=== PATIENT | male | born 1950 | race Hispanic/Latino ===

== ENCOUNTER 2019-07-30 11:14 | Inpatient (IN) | payer MEDICARE ==
--- NOTE | 2019-07-30 11:30 | Event Note ---
ED Screening Note ED Screening Note: Mr. Grover feels "full of fluid." Hx of ID COPD and lymphedema. +body aches. Global swelling. This initial assessment/diagnostic orders/clinical plan/treatment(s) is/are subject to change based on patients health status, clinical progression and re- assessment by fellow clinical providers in the ED. Further treatment and workup at subsequent clinical providers discretion. Patient/guardian urged not to elope from the ED as their condition may be serious if not clinically assessed and managed. Initial orders include: labs, xr
[2019-07-30 12:47] LABS: Basophils # (Auto) 0.1 K/mm3 (0.0-0.1); Basophils % (Auto) 1.3 % (0.0-1.8); Eosinophils # (Auto) 0.5 K/mm3 (0.0-0.4); Eosinophils % (Auto) 6.6 % (0.0-4.3); Lymphocytes % (Auto) 13.9 % (13.4-35.0); Mean Corpuscular HGB Conc 30 % (32-34); Mean Corpuscular Volume 79 fl (84-94); Monocytes # (Auto) 0.7 K/mm3 (0.0-0.8); Monocytes % (Auto) 9.8 % (0.0-7.3); Platelet Count 273 K/mm3 (140-440); Red Blood Count 5.22 M/mm3 (3.65-5.03); Red Cell Distribution Width 18.8 % (13.2-15.2)
--- NOTE | 2019-07-30 12:47 | XRay Report ---
CHEST 2 VIEWS INDICATION / CLINICAL INFORMATION: Dyspnea. COMPARISON: None available. FINDINGS: SUPPORT DEVICES: None. HEART / MEDIASTINUM: Cardiac silhouette is enlarged. LUNGS / PLEURA: Hazy interstitial opacities are present bilaterally. The appearance may reflect early pulmonary vascular congestion. No overt edema. No focal pulmonary consolidation. No pneumothorax. ADDITIONAL FINDINGS: Mild dextroconvex curvature of the lower thoracic spine. IMPRESSION: Findings suggestive of pulmonary vascular congestion without overt edema. Enlarged cardiac silhouette. Signer Name: Viktor Gonsalez MD Signed: 07/30/2019 12:43 PM Workstation Name: [id number]
[2019-07-30 12:48] LABS: Hematocrit 41.4 % (35.5-45.6); Hemoglobin 12.2 gm/dl (11.8-15.2)
[2019-07-30 14:14] LABS: Alanine Aminotransferase 17 units/L (7-56); Albumin 3.8 g/dL (3.9-5); BUN/Creatinine Ratio 9; Blood Urea Nitrogen 8 mg/dL (9-20); Calcium 8.8 mg/dL (8.4-10.2); Hemolysis Index 2
[2019-07-30] MEDS ORDERED: FUROSEMIDE 40 MG/4 ML INJ IV ONE (14:53)
--- NOTE | 2019-07-30 14:56 | Emergency Department Report ---
ED General Adult HPI - General Chief complaint: Dyspnea/Respdistress Stated complaint: FLUID Time Seen by Provider: 07/30/19 14:20 Source: patient Mode of arrival: Wheelchair Limitations: Physical Limitation - History of Present Illness Initial comments: Patient presents to the emergency department with a chief complaint of shortness of breath that is worse when laying flat for the last couple of days. The patient states that he wears oxygen at home this taken his Lasix but has not working. Patient also states that his legs and arms are swollen. She complains of chest tightness but denies kathleen chest pain. -: Gradual Severity scale (0 -10): 1 Quality: other (tightness) Consistency: constant Improves with: rest Worsens with: movement Associated Symptoms: denies other symptoms Treatments Prior to Arrival: none - Related Data Allergies Allergy/AdvReac Type Severity Reaction Status Date / Time Penicillins Allergy Unknown Verified 07/30/19 11:33 ED Review of Systems ROS: Stated complaint: FLUID Other details as noted in HPI Comment: All other systems reviewed and negative Constitutional: denies: chills, fever Eyes: denies: eye pain, eye discharge, vision change ENT: denies: ear pain, throat pain Respiratory: shortness of breath. denies: cough, wheezing Cardiovascular: denies: chest pain, palpitations Endocrine: no symptoms reported Gastrointestinal: denies: abdominal pain, nausea, diarrhea Genitourinary: denies: urgency, dysuria Musculoskeletal: denies: back pain, joint swelling, arthralgia Skin: denies: rash, lesions Neurological: denies: headache, weakness, paresthesias Psychiatric: denies: anxiety, depression Hematological/Lymphatic: denies: easy bleeding, easy bruising ED Past Medical Hx - Past Medical History Hx Hypertension: Yes Hx COPD: Yes (HOME O2) Additional medical history: ELEVATED CHOLESTEROL - Surgical History Past Surgical History?: No - Social History Smoking Status: Former Smoker Substance Use Type: None ED Physical Exam - General Limitations: Physical Limitation General appearance: alert, in no apparent distress - Head Head exam: Present: atraumatic, normocephalic - Eye Eye exam: Present: normal appearance - ENT ENT exam: Present: mucous membranes moist - Neck Neck exam: Present: normal inspection - Respiratory Respiratory exam: Present: rales. Absent: respiratory distress - Cardiovascular Cardiovascular Exam: Present: regular rate, normal rhythm. Absent: systolic murmur, diastolic murmur, rubs, gallop - GI/Abdominal GI/Abdominal exam: Present: soft, distended (abdomen is distended but soft and there is some pitting edema), normal bowel sounds. Absent: tenderness - Rectal Rectal exam: Present: deferred - Extremities Exam Extremities exam: Present: other (bilateral pitting edema) - Back Exam Back exam: Present: normal inspection - Neurological Exam Neurological exam: Present: alert, oriented X3 - Psychiatric Psychiatric exam: Present: normal affect, normal mood - Skin Skin exam: Present: warm, dry, intact, normal color. Absent: rash ED Course Vital Signs 07/30/19 07/30/19 07/30/19 11:29 14:09 14:30 Temperature 97.8 F Pulse Rate 86 78 Respiratory 18 17 Rate Blood Pressure 150/86 146/92 O2 Sat by Pulse 79 L 65 L 98 Oximetry 07/30/19 15:30 Temperature Pulse Rate Respiratory Rate Blood Pressure 123/43 O2 Sat by Pulse 98 Oximetry ED Medical Decision Making - Lab Data Result diagrams: 07/30/19 12:30 07/30/19 12:30 Lab Results 07/30/19 07/30/19 07/30/19 Range/Units 12:30 12:30 12:30 WBC 7.4 (4.5-11.0) K/mm3 RBC 5.22 H (3.65-5.03) M/mm3 Hgb 12.2 (11.8-15.2) gm/dl Hct 41.4 (35.5-45.6) % MCV 79 L (84-94) fl MCH 23 L (28-32) pg MCHC 30 L (32-34) % RDW 18.8 H (13.2-15.2) % Plt Count 273 (140-440) K/mm3 Lymph % (Auto) 13.9 (13.4-35.0) % Nye % (Auto) 9.8 H (0.0-7.3) % Eos % (Auto) 6.6 H (0.0-4.3) % Baso % (Auto) 1.3 (0.0-1.8) % Lymph # 1.0 L (1.2-5.4) K/mm3 Nye # 0.7 (0.0-0.8) K/mm3 Eos # 0.5 H (0.0-0.4) K/mm3 Baso # 0.1 (0.0-0.1) K/mm3 Seg Neutrophils % 68.4 (40.0-70.0) % Seg Neutrophils # 5.0 (1.8-7.7) K/mm3 Sodium 144 (137-145) mmol/L Potassium 4.1 (3.6-5.0) mmol/L Chloride 99.6 (98-107) mmol/L Carbon Dioxide 31 H (22-30) mmol/L Anion Gap 18 mmol/L BUN 8 L (9-20) mg/dL Creatinine 0.9 (0.8-1.5) mg/dL Estimated GFR > 60 ml/min BUN/Creatinine Ratio 9 % Glucose 99 (75-100) mg/dL Calcium 8.8 (8.4-10.2) mg/dL Total Bilirubin 0.50 (0.1-1.2) mg/dL AST 27 (5-40) units/L ALT 17 (7-56) units/L Alkaline Phosphatase 94 (35-129) units/L Troponin T < 0.010 (0.00-0.029) ng/mL NT-Pro-B Natriuret Pep 4074 H (0-900) pg/mL Total Protein 7.2 (6.3-8.2) g/dL Albumin 3.8 L (3.9-5) g/dL Albumin/Globulin Ratio 1.1 % - Radiology Data Radiology results: report reviewed - Medical Decision Making The patient was given IV Lasix Patient will be admitted due to his initial onset having a O2 sat of 70% on O2 Patient also will be admitted due to the concerns of edema secondary to CHF Patient also complains of complete fatigue with exertion and due to his unstable state the patient requires admission for diuresis Critical Care Time: Yes Critical care time in (mins) excluding proc time.: 35 Critical care attestation.: If time is entered above; I have spent that time in minutes in the direct care of this critically ill patient, excluding procedure time. ED Disposition Clinical Impression: CHF exacerbation Disposition: OP ADMIT IP TO THIS HOSP Is pt being admited?: Yes Does the pt Need Aspirin: Yes Condition: Fair
[2019-07-30] MEDS ORDERED: ASPIRIN 81 MG TAB CHEW PO ONE (17:25)
[2019-07-30] MEDS ORDERED: ONDANSETRON 4 MG/2 ML INJ IV PRN (18:58)
[2019-07-30] MEDS ORDERED: METOCLOPRAMIDE 10 MG/2 ML INJ IV PRN (18:58)
[2019-07-30] MEDS ORDERED: HYDROmorphone 1 MG/1 ML INJ IV PRN (18:58)
[2019-07-30] MEDS ORDERED: ACETAMINOPHEN 325 MG TAB PO PRN (18:58)
--- NOTE | 2019-07-30 18:58 | History and Physical Report ---
History of Present Illness Date of examination: 07/30/19 Medications and Allergies Allergies Allergy/AdvReac Type Severity Reaction Status Date / Time Penicillins Allergy Unknown Verified 07/30/19 11:33 Exam - Constitutional Vitals: Temp Pulse Resp BP Pulse Ox 97.8 F 78 17 138/80 94 07/30/19 11:29 07/30/19 14:30 07/30/19 14:30 07/30/19 18:00 07/30/19 18:00 Results - Labs CBC & Chem 7: 07/30/19 12:30 07/30/19 12:30 Labs: Laboratory Last Values WBC 7.4 K/mm3 (4.5-11.0) 07/30/19 12:30 RBC 5.22 M/mm3 (3.65-5.03) H 07/30/19 12:30 Hgb 12.2 gm/dl (11.8-15.2) 07/30/19 12:30 Hct 41.4 % (35.5-45.6) 07/30/19 12:30 MCV 79 fl (84-94) L 07/30/19 12:30 MCH 23 pg (28-32) L 07/30/19 12:30 MCHC 30 % (32-34) L 07/30/19 12:30 RDW 18.8 % (13.2-15.2) H 07/30/19 12:30 Plt Count 273 K/mm3 (140-440) 07/30/19 12:30 Lymph % (Auto) 13.9 % (13.4-35.0) 07/30/19 12:30 [place] % (Auto) 9.8 % (0.0-7.3) H 07/30/19 12:30 Eos % (Auto) 6.6 % (0.0-4.3) H 07/30/19 12:30 Baso % (Auto) 1.3 % (0.0-1.8) 07/30/19 12:30 Lymph # 1.0 K/mm3 (1.2-5.4) L 07/30/19 12:30 [place] # 0.7 K/mm3 (0.0-0.8) 07/30/19 12:30 Eos # 0.5 K/mm3 (0.0-0.4) H 07/30/19 12:30 Baso # 0.1 K/mm3 (0.0-0.1) 07/30/19 12:30 Seg Neutrophils % 68.4 % (40.0-70.0) 07/30/19 12:30 Seg Neutrophils # 5.0 K/mm3 (1.8-7.7) 07/30/19 12:30 Sodium 144 mmol/L (137-145) 07/30/19 12:30 Potassium 4.1 mmol/L (3.6-5.0) 07/30/19 12:30 Chloride 99.6 mmol/L (98-107) 07/30/19 12:30 Carbon Dioxide 31 mmol/L (22-30) H 07/30/19 12:30 Anion Gap 18 mmol/L 07/30/19 12:30 BUN 8 mg/dL (9-20) L 07/30/19 12:30 Creatinine 0.9 mg/dL (0.8-1.5) 07/30/19 12:30 Estimated GFR > 60 ml/min 07/30/19 12:30 BUN/Creatinine Ratio 9 % 07/30/19 12:30 Glucose 99 mg/dL (75-100) 07/30/19 12:30 Calcium 8.8 mg/dL (8.4-10.2) 07/30/19 12:30 Total Bilirubin 0.50 mg/dL (0.1-1.2) 07/30/19 12:30 AST 27 units/L (5-40) 07/30/19 12:30 ALT 17 units/L (7-56) 07/30/19 12:30 Alkaline Phosphatase 94 units/L (35-129) 07/30/19 12:30 Troponin T < 0.010 ng/mL (0.00-0.029) 07/30/19 12:30 NT-Pro-B Natriuret Pep 4074 pg/mL (0-900) H 07/30/19 12:30 Total Protein 7.2 g/dL (6.3-8.2) 07/30/19 12:30 Albumin 3.8 g/dL (3.9-5) L 07/30/19 12:30 Albumin/Globulin Ratio 1.1 % 07/30/19 12:30
[2019-07-30] MEDS ORDERED: ASPIRIN 81 MG TAB CHEW ONE (20:06)
[2019-07-30] MEDS: oxyCODONE /ACETAMINOPHEN 5-325MG TAB PO PRN (21:25)
[2019-07-30] MEDS: FAMOTIDINE 20 MG TAB PO SCH (21:26)
[2019-07-31 05:29] LABS: Basophils # (Auto) 0.1 K/mm3 (0.0-0.1); Eosinophils # (Auto) 0.5 K/mm3 (0.0-0.4); Eosinophils % (Auto) 7.2 % (0.0-4.3); Lymphocytes # (Auto) 1.4 K/mm3 (1.2-5.4); Lymphocytes % (Auto) 20.2 % (13.4-35.0); Mean Corpuscular HGB Conc 29 % (32-34); Mean Corpuscular Volume 80 fl (84-94); Monocytes # (Auto) 0.8 K/mm3 (0.0-0.8); Platelet Count 294 K/mm3 (140-440); Red Blood Count 5.16 M/mm3 (3.65-5.03); Red Cell Distribution Width 18.8 % (13.2-15.2)
[2019-07-31 05:52] LABS: Hematocrit 41.5 % (35.5-45.6)
[2019-07-31 05:58] LABS: Alanine Aminotransferase 16 units/L (7-56); Albumin 3.8 g/dL (3.9-5); BUN/Creatinine Ratio 8; Blood Urea Nitrogen 9 mg/dL (9-20); Calcium 8.5 mg/dL (8.4-10.2); Hemolysis Index 1
--- NOTE | 2019-07-31 06:56 | Event Note ---
Date: 07/30/19 See H/p in reports CHF exacerbation
--- NOTE | 2019-07-31 08:12 | History and Physical Report ---
CHIEF COMPLAINT: Shortness of breath on minimal exertion and lying flat for the last 2 days. HISTORY OF PRESENT ILLNESS: A 68-year-old male comes in for increasing shortness of breath on minimal exertion, class 4 NYHA symptoms. on lying flat for the last couple of days. The patient with oxygen at home. The patient's swollen. Complains of chest tightness because of . PAST MEDICAL HISTORY: As mentioned, COPD, hypertension, hyperlipidemia. PAST SURGICAL HISTORY: None. SOCIAL HISTORY: Former smoker. FAMILY HISTORY: Hypertension. REVIEW OF SYSTEMS: Significant for severe shortness of breath on minimal exertion, orthopnea and bilateral leg swelling. Fluid nearly oozing out of the legs. Otherwise, review of systems negative. PHYSICAL EXAMINATION: GENERAL: Elderly male, cooperative during examination. VITAL SIGNS: Blood pressure is 126/73. Initial sats were 79% and 65. Temperature is 97.8, blood pressure is 150/86. HEENT: Unremarkable. Pupils equal and reactive. NECK: Supple, no lymphadenopathy, no thyromegaly. LUNGS: Scattered rales bilaterally. CARDIOVASCULAR: S1, S2 heard. No gallop, no murmur, no rub. Apical impulse in left fifth intercostal space and midclavicular line. ABDOMEN: Soft and benign. No hepatosplenomegaly. No guarding, no rigidity. Hernial orifices are normal. EXTREMITIES: 4+ pedal edema present. Both feet swollen with slight erythema. CENTRAL NERVOUS SYSTEM: Alert and oriented x 4, nonfocal exam. LABORATORY DATA: Initial oxygen saturations were 79 and 65. Labs are significant for normal H and H. MCV and MCH is slightly low. Electrolytes are normal. BNP is 4073. EKG shows sinus tachycardia. Chest x-ray shows pulmonary venous congestion and pulmonary vascular congestion. ASSESSMENT AND PLAN: 1. Acute respiratory failure. The patient has severe low oxygen saturations, improved with oxygenation and diuresis. The patient is on home oxygen. 2. Congestive heart failure exacerbation. The patient has severe pulmonary edema, on IV Lasix q. 12. Daily weights and daily intake and output. Severe pedal edema secondary to congestive heart failure and pulmonary hypertension extensive diuresis. Cardiology consult requested.ECHO ordered 3. Chronic obstructive pulmonary disease. DuoNeb as necessary. 4. Hypertension. Continue antihypertensives. 5. Deep venous thrombosis prophylaxis. Heparin 5000 q. 12. JOB# [id number] ABRIL/FLAKITA STOKES
[2019-07-31] MEDS: FAMOTIDINE 20 MG TAB PO SCH ×2 (12:55→21:34)
[2019-07-31] MEDS: oxyCODONE /ACETAMINOPHEN 5-325MG TAB PO PRN (12:56)
[2019-07-31 17:11] LABS: ABG Base Excess 9.3 mmol/L (-2.0-3.0); ABG HCO3 42.4 mmol/L (20.0-26.0); ABG Methemoglobin 0.7 % (0.0-1.5); ABG Oxygen Saturation 81.6 % (95.0-99.0); ABG PCO2 124.7 mm Hg; ABG PO2 55.1 mm Hg (80.0-90.0)
[2019-07-31 17:14] LABS: ABG PH 7.149 pH Units (7.350-7.450)
[2019-07-31] MEDS ORDERED: FUROSEMIDE 40 MG/4 ML INJ IV ONE (17:26)
--- NOTE | 2019-07-31 17:47 | Progress Note ---
Assessment and Plan Assessment and plan: Patient is a 68 yo hypertension, prior heavy smoker, dyslipidemia, OA walks with a cane and chronic hypoxic respiratory failure on 2 liters of home O2 due to COPD who presents to [facility] ED with SOB, leg edema. Pulse Ox documented in ED was 70%. 2 view CXR shows pulmonary vascular congestion without overt edema, enlarged cardiac silhouette. * TTE Conclusions: Global LVSF is at the lower limits of normal, estimated EF is 50-55%, trace MR, right heart chambers are both dilated, trace TR, study quality is technically difficult. Acute on chronic hypoxic respiratory failure due to p. edema: treat with iv lasix Acute onset of diastolic heart failure: treat with IV lasix, consult Cardiology Acute Respiratory Acidosis suspected: start bipap, move to IMCU, no beds in ICU per charge nurse Anasarca/ascites: treat with diurectics H/o COPD: treat with prn albuterol DVT ppx sq heparin move to IMCU start IV lasix, he was given a dose of IV lasix x 1 in ED but none was ordered for today. Patient has acutely decompensated after ECHO done today with hypoxia and confusion. Start bipap, give iv lasix, consult [employer], consult Cardiology CCT 3 minutes History Interval history: Patient was seen and examined. Follow-up on current diagnosis CHF, with sob on 5 liters O2. Imaging, nursing note, chart, labs and old chart reviewed. Discussed with patient. Gen: ill appearing obese bmi 37.4, WDWN, NAD, Awake, Alert, Orientated HEENT: NCAT, EOMI, PERRL, OP Clear Neck: supple, no adenopathy, no thyromegaly,+ JVD CVS/Heart: RRR, normal S1S2, pulses present bilaterally Chest/Lungs: bibasilar crackles Symmetrical chest expansion, good air entry bilaterally GI/Abdomen: soft, distensed, flank anasarca, /Bladder: no suprapubic tenderness, no CVA or paraspinal tenderness Extermity/Skin: 3+ble pitting edema, no obvious rash MSK: FROM x 4 Neuro: CN 2-12 grossly intact, no new focal deficits Psych: calm Hospitalist Physical - Constitutional Vitals: Temp Pulse Resp BP Pulse Ox 98.5 F 96 H 18 135/72 81 L 01/30/20 16:21 01/30/20 16:21 07/31/19 16:21 07/31/19 16:21 07/31/19 16:21 Results - Labs CBC & Chem 7: 07/31/19 04:37 07/31/19 04:37 Labs: Laboratory Last Values WBC 7.0 K/mm3 (4.5-11.0) 07/31/19 04:37 RBC 5.16 M/mm3 (3.65-5.03) H 07/31/19 04:37 Hgb 12.0 gm/dl (11.8-15.2) 07/31/19 04:37 Hct 41.5 % (35.5-45.6) 07/31/19 04:37 MCV 80 fl (84-94) L 07/31/19 04:37 MCH 23 pg (28-32) L 07/31/19 04:37 MCHC 29 % (32-34) L 07/31/19 04:37 RDW 18.8 % (13.2-15.2) H 07/31/19 04:37 Plt Count 294 K/mm3 (140-440) 07/31/19 04:37 Lymph % (Auto) 20.2 % (13.4-35.0) 07/31/19 04:37 Saunders % (Auto) 12.0 % (0.0-7.3) H 07/31/19 04:37 Eos % (Auto) 7.2 % (0.0-4.3) H 07/31/19 04:37 Baso % (Auto) 1.0 % (0.0-1.8) 07/31/19 04:37 Lymph # 1.4 K/mm3 (1.2-5.4) 07/31/19 04:37 Saunders # 0.8 K/mm3 (0.0-0.8) 07/31/19 04:37 Eos # 0.5 K/mm3 (0.0-0.4) H 07/31/19 04:37 Baso # 0.1 K/mm3 (0.0-0.1) 07/31/19 04:37 Seg Neutrophils % 59.6 % (40.0-70.0) 07/31/19 04:37 Seg Neutrophils # 4.2 K/mm3 (1.8-7.7) 07/31/19 04:37 ABG pH 7.149 pH Units (7.350-7.450) L* 07/31/19 16:50 ABG pCO2 124.7 mm Hg 07/31/19 16:50 ABG pO2 55.1 mm Hg (80.0-90.0) L 07/31/19 16:50 ABG HCO3 42.4 mmol/L (20.0-26.0) H 07/31/19 16:50 ABG O2 Saturation 81.6 % (95.0-99.0) L 07/31/19 16:50 ABG O2 Content 13.8 (0.0-44) 07/31/19 16:50 ABG Base Excess 9.3 mmol/L (-2.0-3.0) H 07/31/19 16:50 ABG Hemoglobin 12.3 gm/dl (14.0-18.0) L 07/31/19 16:50 ABG Carboxyhemoglobin 2.0 % (0.0-5.0) 07/31/19 16:50 ABG Methemoglobin 0.7 % (0.0-1.5) 07/31/19 16:50 Oxyhemoglobin 79.4 % (95.0-99.0) L 07/31/19 16:50 FiO2 30 % 07/31/19 16:50 Sodium 147 mmol/L (137-145) H 07/31/19 04:37 Potassium 4.9 mmol/L (3.6-5.0) 07/31/19 04:37 Chloride 101.8 mmol/L (98-107) 07/31/19 04:37 Carbon Dioxide 38 mmol/L (22-30) H D 07/31/19 04:37 Anion Gap 12 mmol/L 07/31/19 04:37 BUN 9 mg/dL (9-20) 07/31/19 04:37 Creatinine 1.1 mg/dL (0.8-1.5) 07/31/19 04:37 Estimated GFR > 60 ml/min 07/31/19 04:37 BUN/Creatinine Ratio 8 % 07/31/19 04:37 Glucose 98 mg/dL (75-100) 07/31/19 04:37 Hemoglobin A1c 7.2 % (4-6) H 07/30/19 19:13 Calcium 8.5 mg/dL (8.4-10.2) 07/31/19 04:37 Total Bilirubin 0.50 mg/dL (0.1-1.2) 07/31/19 04:37 AST 26 units/L (5-40) 07/31/19 04:37 ALT 16 units/L (7-56) 07/31/19 04:37 Alkaline Phosphatase 101 units/L (35-129) 07/31/19 04:37 Troponin T < 0.010 ng/mL (0.00-0.029) 07/30/19 12:30 NT-Pro-B Natriuret Pep 4074 pg/mL (0-900) H 07/30/19 12:30 Total Protein 7.0 g/dL (6.3-8.2) 07/31/19 04:37 Albumin 3.8 g/dL (3.9-5) L 07/31/19 04:37 Albumin/Globulin Ratio 1.2 % 07/31/19 04:37 Active Medications - Current Medications Current Medications: Generic Name Dose Route Start Last Admin Trade Name Freq PRN Reason Stop Dose Admin Acetaminophen 650 mg 07/30/19 18:58 Tylenol PO Q4H PRN Pain MILD(1-3)/Fever >100.5/WILLIS Famotidine 20 mg 07/30/19 22:00 07/31/19 12:55 Pepcid PO 20 mg BID SHANE Administration Furosemide 40 mg 07/31/19 18:00 Lasix IV 0600,1800 SHANE Hydromorphone HCl 1 mg 07/30/19 18:58 Dilaudid IV Q3H PRN Pain , Severe (7-10) Metoclopramide HCl 10 mg 07/30/19 18:58 Reglan IV Q6H PRN Nausea And Vomiting Ondansetron HCl 4 mg 07/30/19 18:58 Zofran IV Q8H PRN Nausea And Vomiting Oxycodone/Acetaminophen 1 tab 07/30/19 18:58 07/31/19 12:56 Percocet 5/325 PO 1 tab Q6H PRN Administration Pain, Moderate (4-6) Sodium Chloride 10 ml 07/30/19 22:00 07/31/19 12:56 Sodium Chloride Flush Syringe 10 Ml IV 10 ml BID SHANE Administration Sodium Chloride 10 ml 07/30/19 18:58 Sodium Chloride Flush Syringe 10 Ml IV PRN PRN LINE FLUSH
[2019-07-31] MEDS: FUROSEMIDE 40 MG/4 ML INJ IV SCH (18:50)
[2019-08-01 00:59] LABS: ABG Base Excess 13.4 mmol/L (-2.0-3.0); ABG HCO3 41.8 mmol/L (20.0-26.0); ABG Methemoglobin 0.5 % (0.0-1.5); ABG Oxygen Saturation 95.2 % (95.0-99.0); ABG PCO2 75.4 mm Hg; ABG PH 7.361 pH Units (7.350-7.450); ABG PO2 71.9 mm Hg (80.0-90.0)
[2019-08-01] MEDS: FUROSEMIDE 40 MG/4 ML INJ IV SCH ×2 (05:04→19:52)
--- NOTE | 2019-08-01 07:35 | Progress Note ---
Assessment and Plan Assessment and plan: Patient is a 68 yo man with a history of hypertension, prior tobacco dependency, dyslipidemia, OA with a cane and chronic hypoxic respiratory failure on 2 liters of home O2 due to COPD who presents to [facility] ED with SOB, leg edema. Pulse Ox documented in ED was 70%. His o2 was increased to 5 liters nasal canula. 2 view CXR shows pulmonary vascular congestion without overt edema, enlarged cardiac silhouette. The day after admission, patient acutely decompensated after ECHO done. I resumed IV lasix as he was given a dose of IV lasix x 1 in ED but none was ordered thereafter. ABGs done, 7.149/ 124.7/55.1/42.4; therefore, bipap started, more lasix ordered, Storeroom Supervisor and Cardiology consulted, moved to [facility] on 07/31/2019. Repeat ABGs on bipap 50% 7.361/75.4/71.9/41.8 * TTE Conclusions: Global LVSF is at the lower limits of normal, estimated EF is 50-55%, trace MR, right heart chambers are both dilated, trace TR, study quality is technically difficult. * 2 view CXR shows pulmonary vascular congestion without overt edema, enlarged cardiac silhouette. Acute on chronic hypoxic respiratory failure due to p. edema: treat with iv lasix Acute onset of diastolic heart failure: treat with IV lasix, consult Cardiology Acute Respiratory Acidosis suspected: start bipap, move to [facility], no beds in ICU per charge nurse Anasarca/ascites: treat with diurectics H/o COPD: treat with prn albuterol DVT ppx sq heparin full code CCT 31 minutes History Interval history: Patient was seen and examined. Follow-up on current diagnosis CHF with SOB. Imaging, nursing note, chart, labs and old chart reviewed. Discussed with patient. Hospitalist Physical - Physical exam Narrative exam: Gen: ill appearing obese bmi 37.4, WDWN, NAD, Awake, Alert, Orientated HEENT: NCAT, EOMI, PERRL, OP Clear Neck: supple, no adenopathy, no thyromegaly,+ JVD CVS/Heart: RRR, normal S1S2, pulses present bilaterally Chest/Lungs: bibasilar crackles Symmetrical chest expansion, good air entry bilaterally GI/Abdomen: soft, distensed, flank anasarca, /Bladder: no suprapubic tenderness, no CVA or paraspinal tenderness Extermity/Skin: 3+ble pitting edema, no obvious rash MSK: FROM x 4 Neuro: CN 2-12 grossly intact, no new focal deficits Psych: calm - Constitutional Vitals: Temp Pulse Resp BP Pulse Ox 98.7 F 89 14 135/76 94 08/01/19 04:00 08/01/19 05:01 08/01/19 05:01 08/01/19 05:01 08/01/19 05:01 Results - Labs CBC & Chem 7: 07/31/19 04:37 07/31/19 04:37 Labs: Laboratory Last Values WBC 7.0 K/mm3 (4.5-11.0) 07/31/19 04:37 RBC 5.16 M/mm3 (3.65-5.03) H 07/31/19 04:37 Hgb 12.0 gm/dl (11.8-15.2) 07/31/19 04:37 Hct 41.5 % (35.5-45.6) 07/31/19 04:37 MCV 80 fl (84-94) L 07/31/19 04:37 MCH 23 pg (28-32) L 07/31/19 04:37 MCHC 29 % (32-34) L 07/31/19 04:37 RDW 18.8 % (13.2-15.2) H 07/31/19 04:37 Plt Count 294 K/mm3 (140-440) 07/31/19 04:37 Lymph % (Auto) 20.2 % (13.4-35.0) 07/31/19 04:37 Luce % (Auto) 12.0 % (0.0-7.3) H 07/31/19 04:37 Eos % (Auto) 7.2 % (0.0-4.3) H 07/31/19 04:37 Baso % (Auto) 1.0 % (0.0-1.8) 07/31/19 04:37 Lymph # 1.4 K/mm3 (1.2-5.4) 07/31/19 04:37 Luce # 0.8 K/mm3 (0.0-0.8) 07/31/19 04:37 Eos # 0.5 K/mm3 (0.0-0.4) H 07/31/19 04:37 Baso # 0.1 K/mm3 (0.0-0.1) 07/31/19 04:37 Seg Neutrophils % 59.6 % (40.0-70.0) 07/31/19 04:37 Seg Neutrophils # 4.2 K/mm3 (1.8-7.7) 07/31/19 04:37 ABG pH 7.361 pH Units (7.350-7.450) 08/01/19 00:25 ABG pCO2 75.4 mm Hg 08/01/19 00:25 ABG pO2 71.9 mm Hg (80.0-90.0) L 08/01/19 00:25 ABG HCO3 41.8 mmol/L (20.0-26.0) H 08/01/19 00:25 ABG O2 Saturation 95.2 % (95.0-99.0) 08/01/19 00:25 ABG O2 Content 15.4 (0.0-44) 08/01/19 00:25 ABG Base Excess 13.4 mmol/L (-2.0-3.0) H 08/01/19 00:25 ABG Hemoglobin 11.8 gm/dl (14.0-18.0) L 08/01/19 00:25 ABG Carboxyhemoglobin 2.2 % (0.0-5.0) 08/01/19 00:25 ABG Methemoglobin 0.5 % (0.0-1.5) 08/01/19 00:25 Oxyhemoglobin 92.6 % (95.0-99.0) L 08/01/19 00:25 FiO2 50 % 08/01/19 00:25 Sodium 147 mmol/L (137-145) H 07/31/19 04:37 Potassium 4.9 mmol/L (3.6-5.0) 07/31/19 04:37 Chloride 101.8 mmol/L (98-107) 07/31/19 04:37 Carbon Dioxide 38 mmol/L (22-30) H D 07/31/19 04:37 Anion Gap 12 mmol/L 07/31/19 04:37 BUN 9 mg/dL (9-20) 07/31/19 04:37 Creatinine 1.1 mg/dL (0.8-1.5) 07/31/19 04:37 Estimated GFR > 60 ml/min 07/31/19 04:37 BUN/Creatinine Ratio 8 % 07/31/19 04:37 Glucose 98 mg/dL (75-100) 07/31/19 04:37 Hemoglobin A1c 7.2 % (4-6) H 07/30/19 19:13 Calcium 8.5 mg/dL (8.4-10.2) 07/31/19 04:37 Total Bilirubin 0.50 mg/dL (0.1-1.2) 07/31/19 04:37 AST 26 units/L (5-40) 07/31/19 04:37 ALT 16 units/L (7-56) 07/31/19 04:37 Alkaline Phosphatase 101 units/L (35-129) 07/31/19 04:37 Troponin T < 0.010 ng/mL (0.00-0.029) 07/30/19 12:30 NT-Pro-B Natriuret Pep 4074 pg/mL (0-900) H 07/30/19 12:30 Total Protein 7.0 g/dL (6.3-8.2) 07/31/19 04:37 Albumin 3.8 g/dL (3.9-5) L 07/31/19 04:37 Albumin/Globulin Ratio 1.2 % 07/31/19 04:37 Active Medications - Current Medications Current Medications: Generic Name Dose Route Start Last Admin Trade Name Freq PRN Reason Stop Dose Admin Acetaminophen 650 mg 07/30/19 18:58 Tylenol PO Q4H PRN Pain MILD(1-3)/Fever >100.5/WILLIS Atorvastatin Calcium 20 mg 08/01/19 22:00 Lipitor PO HS SHANE Famotidine 20 mg 07/30/19 22:00 07/31/19 21:34 Pepcid PO Not Given BID SHANE Furosemide 40 mg 07/31/19 18:00 08/01/19 05:04 Lasix IV 40 mg 0600,1800 SHANE Administration Hydromorphone HCl 1 mg 07/30/19 18:58 07/31/19 21:40 Dilaudid IV 1 mg Q3H PRN Administration Pain , Severe (7-10) Lisinopril mg 08/01/19 10:00 Zestril PO DAILY SHANE Metoclopramide HCl 10 mg 07/30/19 18:58 Reglan IV Q6H PRN Nausea And Vomiting Ondansetron HCl 4 mg 07/30/19 18:58 Zofran IV Q8H PRN Nausea And Vomiting Oxycodone/Acetaminophen 1 tab 07/30/19 18:58 07/31/19 12:56 Percocet 5/325 PO 1 tab Q6H PRN Administration Pain, Moderate (4-6) Sodium Chloride 10 ml 07/30/19 22:00 07/31/19 21:42 Sodium Chloride Flush Syringe 10 Ml IV 10 ml BID SHANE Administration Sodium Chloride 10 ml 07/30/19 18:58 Sodium Chloride Flush Syringe 10 Ml IV PRN PRN LINE FLUSH
[2019-08-01 08:29] LABS: BUN/Creatinine Ratio 19; Blood Urea Nitrogen 15 mg/dL (9-20); Calcium 8.7 mg/dL (8.4-10.2); Hemolysis Index 5
[2019-08-01] MEDS: LISINOPRIL 20 MG TAB PO SCH (09:52)
[2019-08-01] MEDS: FAMOTIDINE 20 MG TAB PO SCH ×2 (10:56→22:59)
--- NOTE | 2019-08-01 11:29 | Consultation ---
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 patient states that he uses nebulizers and inhalers at home but cannot remember the names of the meds. He quit smoking 7 years ago and smoked for about 16 years. He does wear oxygen 24/. Past History Past Medical History: COPD, hypertension, hyperlipidemia Social history: smoking Family history: no significant family history Medications and Allergies Allergies Allergy/AdvReac Type Severity Reaction Status Date / Time Penicillins Allergy Unknown Verified 07/30/19 11:33 Home Medications Medication Instructions Recorded Confirmed Last Taken Type AtorvaSTATin [Lipitor] 20 mg PO HS 07/31/19 07/31/19 Unknown History Ipratropium/Albuterol Sulfate 20 puff INHALATION PRN 07/31/19 07/31/19 Unknown History [Combivent Respimat] amLODIPine 10 tab PO DAILY 07/31/19 07/31/19 Unknown History lisinopriL [Zestril TAB] 20 tab PO DAILY 07/31/19 07/31/19 Unknown History Active Meds: Active Medications Acetaminophen (Tylenol) 650 mg PO Q4H PRN PRN Reason: Pain MILD(1-3)/Fever >100.5/WILLIS Atorvastatin Calcium (Lipitor) 20 mg PO HS [facility] Famotidine (Pepcid) 20 mg PO BID [facility] Last Admin: 08/01/19 10:56 Dose: 20 mg Documented by: Furosemide (Lasix) 40 mg IV 0600,1800 [facility] Last Admin: 08/01/19 05:04 Dose: 40 mg Documented by: Hydromorphone HCl (Dilaudid) 1 mg IV Q3H PRN PRN Reason: Pain , Severe (7-10) Last Admin: 07/31/19 21:40 Dose: 1 mg Documented by: Lisinopril (Zestril) 20 mg PO DAILY [facility] Metoclopramide HCl (Reglan) 10 mg IV Q6H PRN PRN Reason: Nausea And Vomiting Ondansetron HCl (Zofran) 4 mg IV Q8H PRN PRN Reason: Nausea And Vomiting Oxycodone/Acetaminophen (Percocet 5/325) 1 tab PO Q6H PRN PRN Reason: Pain, Moderate (4-6) Last Admin: 07/31/19 12:56 Dose: 1 tab Documented by: Sodium Chloride (Sodium Chloride Flush Syringe 10 Ml) 10 ml IV BID [facility] Last Admin: 08/01/19 10:57 Dose: 10 ml Documented by: Sodium Chloride (Sodium Chloride Flush Syringe 10 Ml) 10 ml IV PRN PRN PRN Reason: LINE FLUSH Review of Systems All systems: negative Physical Examination Vital signs: Vital Signs Temp Pulse Resp BP Pulse Ox 97.8 F 86 18 150/86 79 L 07/30/19 11:29 07/30/19 11:29 07/30/19 11:29 07/30/19 11:29 07/30/19 11:29 Results - Laboratory Findings CBC and BMP: 08/02/19 03:39 08/02/19 03:39 ABG ABG pH 7.361 pH Units (7.350-7.450) 08/01/19 00:25 ABG pCO2 75.4 mm Hg 08/01/19 00:25 ABG pO2 71.9 mm Hg (80.0-90.0) L 08/01/19 00:25 ABG O2 Saturation 95.2 % (95.0-99.0) 08/01/19 00:25 Abnormal lab findings: Abnormal Labs 07/30/19 07/30/19 07/30/19 12:30 12:30 12:30 RBC 5.22 H MCV 79 L MCH 23 L MCHC 30 L RDW 18.8 H [place] % (Auto) 9.8 H Eos % (Auto) 6.6 H Lymph # 1.0 L Eos # 0.5 H ABG pH ABG pO2 ABG HCO3 ABG O2 Saturation ABG Base Excess ABG Hemoglobin Oxyhemoglobin Sodium Chloride Carbon Dioxide 31 H BUN 8 L Hemoglobin A1c NT-Pro-B Natriuret Pep 4074 H Albumin 3.8 L 07/30/19 07/31/19 07/31/19 19:13 04:37 04:37 RBC 5.16 H MCV 80 L MCH 23 L MCHC 29 L RDW 18.8 H [place] % (Auto) 12.0 H Eos % (Auto) 7.2 H Lymph # Eos # 0.5 H ABG pH ABG pO2 ABG HCO3 ABG O2 Saturation ABG Base Excess ABG Hemoglobin Oxyhemoglobin Sodium 147 H Chloride Carbon Dioxide 38 H D BUN Hemoglobin A1c 7.2 H NT-Pro-B Natriuret Pep Albumin 3.8 L 07/31/19 08/01/19 08/01/19 16:50 00:25 07:54 RBC MCV MCH MCHC RDW [place] % (Auto) Eos % (Auto) Lymph # Eos # ABG pH 7.149 L* ABG pO2 55.1 L 71.9 L ABG HCO3 42.4 H 41.8 H ABG O2 Saturation 81.6 L ABG Base Excess 9.3 H 13.4 H ABG Hemoglobin 12.3 L 11.8 L Oxyhemoglobin 79.4 L 92.6 L Sodium 146 H Chloride 97.7 L Carbon Dioxide 36 H BUN Hemoglobin A1c NT-Pro-B Natriuret Pep Albumin - Diagnostic Findings Chest x-ray: image reviewed (Pulmonary edema) Assessment and Plan 68 y/o with known COPD and chronic respiratory failure, admitted with acute on chronic respiratory failure. 1. Will add BID pulmicort and brovana 2. Will start IV steroids at q6 hour intervals 3. Agree with diuresis 4. Wean FiO2 for sats >88%
--- NOTE | 2019-08-01 12:11 | Consultation ---
History of Present Illness Consult date: 08/01/19 Consult reason: congestive heart failure History of present illness: This is a 68-year old male with COPD on home oxygen. There is no history of coronary artery disease. In 2017 he had a cardiac PET scan at [facility] that reports normal perfusion. More recently, a year ago, he had a negative stress thallium test Patient presented with worsening shortness of breath, admitted with hypoxic respiratory failure. It is reported a O2 sats in the 70s on presentation. There were no reports of chest pain or palpitations. A chest x-ray reports mild int erstitial edema and BNP is elevated suggesting CHF. Further evaluation with an echocardiogram this admission shows mild dilated right heart chambers, but a normal left ventricular systolic function, ejection fraction 50-55% Cardiac consultation has been requested for CHF evaluation. Medications and Allergies Allergies Allergy/AdvReac Type Severity Reaction Status Date / Time Penicillins Allergy Unknown Verified 07/30/19 11:33 Home Medications Medication Instructions Recorded Confirmed Last Taken Type AtorvaSTATin [Lipitor] 20 mg PO HS 07/31/19 07/31/19 Unknown History Ipratropium/Albuterol Sulfate 20 puff INHALATION PRN 07/31/19 07/31/19 Unknown History [Combivent Respimat] amLODIPine 10 tab PO DAILY 07/31/19 07/31/19 Unknown History lisinopriL [Zestril TAB] 20 tab PO DAILY 07/31/19 07/31/19 Unknown History Active Meds: Active Medications Acetaminophen (Tylenol) 650 mg PO Q4H PRN PRN Reason: Pain MILD(1-3)/Fever >100.5/WILLIS Atorvastatin Calcium (Lipitor) 20 mg PO HS [facility] Famotidine (Pepcid) 20 mg PO BID [facility] Last Admin: 08/01/19 10:56 Dose: 20 mg Documented by: Furosemide (Lasix) 40 mg IV 0600,1800 [facility] Last Admin: 08/01/19 05:04 Dose: 40 mg Documented by: Hydromorphone HCl (Dilaudid) 1 mg IV Q3H PRN PRN Reason: Pain , Severe (7-10) Last Admin: 07/31/19 21:40 Dose: 1 mg Documented by: Lisinopril (Zestril) 20 mg PO DAILY [facility] Metoclopramide HCl (Reglan) 10 mg IV Q6H PRN PRN Reason: Nausea And Vomiting Ondansetron HCl (Zofran) 4 mg IV Q8H PRN PRN Reason: Nausea And Vomiting Oxycodone/Acetaminophen (Percocet 5/325) 1 tab PO Q6H PRN PRN Reason: Pain, Moderate (4-6) Last Admin: 07/31/19 12:56 Dose: 1 tab Documented by: Sodium Chloride (Sodium Chloride Flush Syringe 10 Ml) 10 ml IV BID [facility] Last Admin: 08/01/19 10:57 Dose: 10 ml Documented by: Sodium Chloride (Sodium Chloride Flush Syringe 10 Ml) 10 ml IV PRN PRN PRN Reason: LINE FLUSH Physical Examination Vital Signs Temp Pulse Resp BP Pulse Ox 97.8 F 86 18 150/86 79 L 07/30/19 11:29 07/30/19 11:29 07/30/19 11:29 07/30/19 11:29 07/30/19 11:29 General appearance: no acute distress HEENT: Positive: PERRL Neck: Positive: trachea midline Cardiac: Positive: Reg Rate and Rhythm Lungs: Positive: Decreased Breath Sounds Neuro: Positive: Grossly Intact Extremities: Absent: edema Results 07/31/19 04:37 08/01/19 07:54 Comprehensive Metabolic Panel 08/01/19 Range/Units 07:54 Sodium 146 H (137-145) mmol/L Potassium 4.6 (3.6-5.0) mmol/L Chloride 97.7 L (98-107) mmol/L Carbon Dioxide 36 H (22-30) mmol/L BUN 15 (9-20) mg/dL Creatinine 0.8 (0.8-1.5) mg/dL Glucose 94 (75-100) mg/dL Calcium 8.7 (8.4-10.2) mg/dL
[2019-08-02 04:19] LABS: Mean Corpuscular HGB Conc 30 % (32-34); Mean Corpuscular Volume 78 fl (84-94); Platelet Count 253 K/mm3 (140-440); Red Cell Distribution Width 18.7 % (13.2-15.2)
[2019-08-02 04:24] LABS: Hematocrit 38.4 % (35.5-45.6); Hemoglobin 11.7 gm/dl (11.8-15.2)
[2019-08-02 04:42] LABS: BUN/Creatinine Ratio 16; Blood Urea Nitrogen 13 mg/dL (9-20); Calcium 8.7 mg/dL (8.4-10.2); Hemolysis Index 7
--- NOTE | 2019-08-02 10:02 | Progress Note ---
Assessment and Plan 1. Chronic Diastolic heart failure 2. Essential hypertension 3. COPD Plan as per previous cardiac note patient stable no further cardiac workup planned. Subjective Date of service: 08/02/19 Interval history: No cardiac symptoms. Objective Vital Signs Temp Pulse Pulse Resp BP Pulse Ox 08/02/19 08:00 98.7 F 08/02/19 06:31 98 H 16 120/51 94 08/02/19 06:21 93 H 16 120/51 94 08/02/19 06:11 93 H 18 120/51 93 08/02/19 06:01 94 H 17 120/51 93 08/02/19 05:51 95 H 19 137/62 96 08/02/19 05:41 98 H 15 137/62 95 08/02/19 05:31 97 H 13 137/62 95 08/02/19 05:21 97 H 15 137/62 96 08/02/19 05:11 104 H 19 137/62 85 08/02/19 05:00 95 H 18 137/62 92 08/02/19 04:51 97 H 18 144/73 93 08/02/19 04:41 96 H 18 144/73 95 08/02/19 04:31 101 H 18 144/73 96 08/02/19 04:21 95 H 15 144/73 96 08/02/19 04:11 96 H 17 144/73 95 08/02/19 04:00 98.5 F 98 H 94 H 18 144/73 94 08/02/19 03:56 98.5 F 08/02/19 03:51 100 H 17 146/79 93 08/02/19 03:41 100 H 18 146/79 95 08/02/19 03:31 103 H 19 146/79 83 L 08/02/19 03:21 102 H 18 146/79 83 L 08/02/19 03:11 103 H 19 146/79 88 08/02/19 03:00 98.5 F 103 H 20 146/79 95 08/02/19 02:51 100 H 16 133/58 96 08/02/19 02:41 103 H 18 133/58 94 08/02/19 02:31 97 H 16 133/58 94 08/02/19 02:21 133/58 95 08/02/19 02:11 133/58 93 08/02/19 02:00 133/58 91 08/02/19 01:51 140/65 94 08/02/19 01:41 140/65 93 08/02/19 01:31 140/65 93 08/02/19 01:21 104 H 15 140/65 90 08/02/19 01:11 101 H 17 140/65 93 08/02/19 01:00 98 H 17 140/65 92 08/02/19 00:51 97 H 18 133/73 93 08/02/19 00:41 98 H 18 133/73 94 08/02/19 00:31 97 H 17 133/73 93 08/02/19 00:21 97 H 20 133/73 92 08/02/19 00:11 100 H 18 133/73 94 08/02/19 00:01 97 H 22 133/73 93 08/02/19 00:00 88 91 H 20 93 08/01/19 23:51 98.4 F 101 H 14 130/82 92 08/01/19 23:41 97 H 19 130/82 92 08/01/19 23:31 99 H 13 130/82 93 08/01/19 23:21 98 H 22 130/82 93 08/01/19 23:11 102 H 19 130/82 92 08/01/19 23:00 103 H 25 H 130/82 93 08/01/19 22:51 96 H 20 136/68 93 08/01/19 22:41 99 H 17 136/68 93 08/01/19 22:31 101 H 19 136/68 92 08/01/19 22:21 97 H 24 136/68 94 08/01/19 22:11 100 H 21 136/68 86 08/01/19 22:00 96 H 28 H 136/68 93 08/01/19 21:51 96 H 28 H 130/75 92 08/01/19 21:41 108 H 20 130/75 92 08/01/19 21:31 97 H 18 130/75 89 08/01/19 21:21 96 H 31 H 130/75 93 08/01/19 21:11 99 H 28 H 130/75 93 08/01/19 21:00 90 24 130/75 91 08/01/19 20:51 93 H 32 H 136/77 92 08/01/19 20:41 92 H 18 136/77 92 08/01/19 20:31 92 H 25 H 136/77 91 08/01/19 20:21 96 H 24 136/77 90 08/01/19 20:11 89 20 136/77 94 08/01/19 20:00 87 91 H 21 136/77 94 08/01/19 19:51 89 31 H 137/76 95 08/01/19 19:48 96 08/01/19 19:41 104 H 22 137/76 91 08/01/19 19:31 95 H 21 137/76 96 08/01/19 19:21 88 17 137/76 95 08/01/19 19:11 97 H 17 137/76 96 08/01/19 19:01 98 H 17 137/76 93 08/01/19 18:51 94 H 25 H 120/59 08/01/19 18:41 104 H 21 120/59 08/01/19 18:21 88 11 L 120/59 97 08/01/19 18:11 87 18 120/59 96 08/01/19 18:00 88 21 120/59 94 08/01/19 17:51 88 21 127/65 94 08/01/19 17:41 89 15 127/65 91 08/01/19 17:31 89 20 94 08/01/19 17:20 91 H 22 127/65 93 08/01/19 17:11 91 H 18 127/65 95 08/01/19 17:00 89 19 127/65 92 08/01/19 16:51 90 19 133/61 91 08/01/19 16:41 87 15 133/61 95 08/01/19 16:31 87 16 133/61 96 08/01/19 16:21 88 18 133/61 93 08/01/19 16:11 92 H 13 133/61 94 08/01/19 16:00 99.6 F 91 H 91 H 20 133/61 93 08/01/19 15:51 87 19 118/59 95 08/01/19 15:41 87 19 118/59 95 08/01/19 15:31 91 H 118/59 95 08/01/19 15:21 91 H 118/59 95 08/01/19 15:11 91 H 118/59 96 08/01/19 15:05 95 08/01/19 15:01 96 H 118/59 93 08/01/19 14:51 96 H 123/90 95 08/01/19 14:41 99 H 123/90 94 08/01/19 14:31 104 H 19 123/90 92 08/01/19 14:21 123/90 91 08/01/19 14:11 123/90 93 08/01/19 14:00 123/90 92 08/01/19 13:51 108/76 93 08/01/19 13:41 108/76 94 08/01/19 13:31 92 H 14 108/76 94 08/01/19 13:21 92 H 22 108/76 95 08/01/19 13:11 91 H 17 125/92 94 08/01/19 13:01 95 H 15 125/92 93 08/01/19 12:51 93 H 18 108/76 94 08/01/19 12:41 91 H 18 108/76 94 08/01/19 12:32 95 08/01/19 12:31 92 H 19 108/76 94 08/01/19 12:21 99 H 21 108/76 08/01/19 12:11 92 H 12 108/76 92 08/01/19 12:00 98.8 F 91 H 91 H 22 108/76 91 08/01/19 11:51 110/65 73 L 08/01/19 11:41 93 H 19 110/65 91 08/01/19 11:31 96 H 25 H 110/65 91 08/01/19 11:21 104 H 14 110/65 93 08/01/19 11:11 100 H 14 110/65 92 08/01/19 11:01 94 H 21 110/65 91 08/01/19 10:51 95 H 16 112/63 92 08/01/19 10:41 135/76 82 L 08/01/19 10:32 135/76 92 08/01/19 10:20 135/76 08/01/19 10:11 135/76 84 - Physical Examination General: Appears Well, No Apparent Distress HEENT: Positive: PERRL, Normocephaly, Mucus Membranes Moist Neck: Positive: neck supple, trachea midline. Negative: JVD/HJR Cardiac: Positive: Reg Rate and Rhythm, S1/S2, PMI, Laterally Displaced. Negative: S3, S4 Lungs: Positive: clear to auscultation, No Wheeze, Rales, Rhonchi Neuro: Positive: Grossly Intact Abdomen: Positive: Unremarkable, Active Bowel Sounds Extremities: Absent: edema - Labs and Meds CBC 08/02/19 Range/Units 03:39 WBC 7.3 (4.5-11.0) K/mm3 RBC 4.90 (3.65-5.03) M/mm3 Hgb 11.7 L (11.8-15.2) gm/dl Hct 38.4 (35.5-45.6) % Plt Count 253 (140-440) K/mm3 Comprehensive Metabolic Panel 08/02/19 Range/Units 03:39 Sodium 142 (137-145) mmol/L Potassium 4.2 (3.6-5.0) mmol/L Chloride 93.1 L (98-107) mmol/L Carbon Dioxide 39 H (22-30) mmol/L BUN 13 (9-20) mg/dL Creatinine 0.8 (0.8-1.5) mg/dL Glucose 71 L (75-100) mg/dL Calcium 8.7 (8.4-10.2) mg/dL
[2019-08-02] MEDS: LISINOPRIL 20 MG TAB PO SCH (10:34)
[2019-08-02] MEDS: FAMOTIDINE 20 MG TAB PO SCH ×2 (10:34→21:02)
[2019-08-02] MEDS: oxyCODONE /ACETAMINOPHEN 5-325MG TAB PO PRN ×2 (10:39→21:02)
--- NOTE | 2019-08-02 11:14 | Progress Note ---
Assessment and Plan 68 y/o with known COPD and chronic respiratory failure, admitted with acute on chronic respiratory failure. 1. Will add BID pulmicort and brovana 2. Will start IV steroids at q6 hour intervals 3. Agree with diuresis 4. Wean FiO2 for sats >88% Subjective Date of service: 08/02/19 Interval history: Patient still on HFNC. 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 States breathing is about the same. Objective Vital Signs - 12hr 08/01/19 08/01/19 08/01/19 23:11 23:21 23:31 Temperature Pulse Rate 102 H 98 H 99 H Pulse Rate [ From Monitor] Respiratory 19 22 13 Rate Blood Pressure 130/82 130/82 130/82 O2 Sat by Pulse 92 93 93 Oximetry 08/01/19 08/01/19 08/02/19 23:41 23:51 00:00 Temperature 98.4 F Pulse Rate 97 H 101 H 88 Pulse Rate [ 91 H From Monitor] Respiratory 19 14 20 Rate Blood Pressure 130/82 130/82 O2 Sat by Pulse 92 92 93 Oximetry 08/02/19 08/02/19 08/02/19 00:01 00:11 00:21 Temperature Pulse Rate 97 H 100 H 97 H Pulse Rate [ From Monitor] Respiratory 22 18 20 Rate Blood Pressure 133/73 133/73 133/73 O2 Sat by Pulse 93 94 92 Oximetry 08/02/19 08/02/19 08/02/19 00:31 00:41 00:51 Temperature Pulse Rate 97 H 98 H 97 H Pulse Rate [ From Monitor] Respiratory 17 18 18 Rate Blood Pressure 133/73 133/73 133/73 O2 Sat by Pulse 93 94 93 Oximetry 08/02/19 08/02/19 08/02/19 01:00 01:11 01:21 Temperature Pulse Rate 98 H 101 H 104 H Pulse Rate [ From Monitor] Respiratory 17 17 15 Rate Blood Pressure 140/65 140/65 140/65 O2 Sat by Pulse 92 93 90 Oximetry 08/02/19 08/02/19 08/02/19 01:31 01:41 01:51 Temperature Pulse Rate Pulse Rate [ From Monitor] Respiratory Rate Blood Pressure 140/65 140/65 140/65 O2 Sat by Pulse 93 93 94 Oximetry 08/02/19 08/02/19 08/02/19 02:00 02:11 02:21 Temperature Pulse Rate Pulse Rate [ From Monitor] Respiratory Rate Blood Pressure 133/58 133/58 133/58 O2 Sat by Pulse 91 93 95 Oximetry 08/02/19 08/02/19 08/02/19 02:31 02:41 02:51 Temperature Pulse Rate 97 H 103 H 100 H Pulse Rate [ From Monitor] Respiratory 16 18 16 Rate Blood Pressure 133/58 133/58 133/58 O2 Sat by Pulse 94 94 96 Oximetry 08/02/19 08/02/19 08/02/19 03:00 03:11 03:21 Temperature 98.5 F Pulse Rate 103 H 103 H 102 H Pulse Rate [ From Monitor] Respiratory 20 19 18 Rate Blood Pressure 146/79 146/79 146/79 O2 Sat by Pulse 95 88 83 L Oximetry 08/02/19 08/02/19 08/02/19 03:31 03:41 03:51 Temperature Pulse Rate 103 H 100 H 100 H Pulse Rate [ From Monitor] Respiratory 19 18 17 Rate Blood Pressure 146/79 146/79 146/79 O2 Sat by Pulse 83 L 95 93 Oximetry 08/02/19 08/02/19 08/02/19 03:56 04:00 04:11 Temperature 98.5 F 98.5 F Pulse Rate 98 H 96 H Pulse Rate [ 94 H From Monitor] Respiratory 18 17 Rate Blood Pressure 144/73 144/73 O2 Sat by Pulse 94 95 Oximetry 08/02/19 08/02/19 08/02/19 04:21 04:31 04:41 Temperature Pulse Rate 95 H 101 H 96 H Pulse Rate [ From Monitor] Respiratory 15 18 18 Rate Blood Pressure 144/73 144/73 144/73 O2 Sat by Pulse 96 96 95 Oximetry 08/02/19 08/02/19 08/02/19 04:51 05:00 05:11 Temperature Pulse Rate 97 H 95 H 104 H Pulse Rate [ From Monitor] Respiratory 18 18 19 Rate Blood Pressure 144/73 137/62 137/62 O2 Sat by Pulse 93 92 85 Oximetry 08/02/19 08/02/19 08/02/19 05:21 05:31 05:41 Temperature Pulse Rate 97 H 97 H 98 H Pulse Rate [ From Monitor] Respiratory 15 13 15 Rate Blood Pressure 137/62 137/62 137/62 O2 Sat by Pulse 96 95 95 Oximetry 08/02/19 08/02/19 08/02/19 05:51 06:01 06:11 Temperature Pulse Rate 95 H 94 H 93 H Pulse Rate [ From Monitor] Respiratory 19 17 18 Rate Blood Pressure 137/62 120/51 120/51 O2 Sat by Pulse 96 93 93 Oximetry 08/02/19 08/02/19 08/02/19 06:21 06:31 07:00 Temperature Pulse Rate 93 H 98 H 91 H Pulse Rate [ From Monitor] Respiratory 16 16 17 Rate Blood Pressure 120/51 120/51 143/81 O2 Sat by Pulse 94 94 93 Oximetry 08/02/19 08/02/19 08/02/19 08:00 09:00 10:00 Temperature 98.7 F Pulse Rate 91 H 93 H 92 H Pulse Rate [ From Monitor] Respiratory 17 19 18 Rate Blood Pressure 149/87 166/91 136/86 O2 Sat by Pulse 92 89 92 Oximetry 08/02/19 10:34 Temperature Pulse Rate 90 Pulse Rate [ From Monitor] Respiratory Rate Blood Pressure 136/86 O2 Sat by Pulse Oximetry CBC and BMP: 08/02/19 03:39 08/02/19 03:39 ABG, PT/INR, D-dimer: ABG ABG pH 7.361 pH Units (7.350-7.450) 08/01/19 00:25 ABG pCO2 75.4 mm Hg 08/01/19 00:25 ABG pO2 71.9 mm Hg (80.0-90.0) L 08/01/19 00:25 ABG O2 Saturation 95.2 % (95.0-99.0) 08/01/19 00:25 Abnormal lab findings: Abnormal Labs 07/30/19 07/30/19 07/30/19 12:30 12:30 12:30 RBC 5.22 H Hgb MCV 79 L MCH 23 L MCHC 30 L RDW 18.8 H [place] % (Auto) 9.8 H Eos % (Auto) 6.6 H Lymph # 1.0 L Eos # 0.5 H ABG pH ABG pO2 ABG HCO3 ABG O2 Saturation ABG Base Excess ABG Hemoglobin Oxyhemoglobin Sodium Chloride Carbon Dioxide 31 H BUN 8 L Glucose Hemoglobin A1c NT-Pro-B Natriuret Pep 4074 H Albumin 3.8 L 07/30/19 07/31/19 07/31/19 19:13 04:37 04:37 RBC 5.16 H Hgb MCV 80 L MCH 23 L MCHC 29 L RDW 18.8 H [place] % (Auto) 12.0 H Eos % (Auto) 7.2 H Lymph # Eos # 0.5 H ABG pH ABG pO2 ABG HCO3 ABG O2 Saturation ABG Base Excess ABG Hemoglobin Oxyhemoglobin Sodium 147 H Chloride Carbon Dioxide 38 H D BUN Glucose Hemoglobin A1c 7.2 H NT-Pro-B Natriuret Pep Albumin 3.8 L 07/31/19 08/01/19 08/01/19 16:50 00:25 07:54 RBC Hgb MCV MCH MCHC RDW [place] % (Auto) Eos % (Auto) Lymph # Eos # ABG pH 7.149 L* ABG pO2 55.1 L 71.9 L ABG HCO3 42.4 H 41.8 H ABG O2 Saturation 81.6 L ABG Base Excess 9.3 H 13.4 H ABG Hemoglobin 12.3 L 11.8 L Oxyhemoglobin 79.4 L 92.6 L Sodium 146 H Chloride 97.7 L Carbon Dioxide 36 H BUN Glucose Hemoglobin A1c NT-Pro-B Natriuret Pep Albumin 08/02/19 08/02/19 03:39 03:39 RBC Hgb 11.7 L MCV 78 L MCH 24 L MCHC 30 L RDW 18.7 H [place] % (Auto) Eos % (Auto) Lymph # Eos # ABG pH ABG pO2 ABG HCO3 ABG O2 Saturation ABG Base Excess ABG Hemoglobin Oxyhemoglobin Sodium Chloride 93.1 L Carbon Dioxide 39 H BUN Glucose 71 L Hemoglobin A1c NT-Pro-B Natriuret Pep Albumin
[2019-08-02] MEDS: ARFORMOTEROL 15 MCG/2 ML NEBU IH SCH ×2 (16:06→19:21)
[2019-08-02] MEDS: BUDESONIDE 0.5 MG/2 ML NEBU IH SCH ×2 (16:06→19:21)
--- NOTE | 2019-08-02 17:54 | Progress Note ---
Assessment and Plan Assessment and plan: Patient is a 68 yo man with a history of hypertension, prior tobacco dependency, dyslipidemia, OA with a cane and chronic hypoxic respiratory failure on 2 liters of home O2 due to COPD who presents to [facility] ED with SOB, leg edema. Pulse Ox documented in ED was 70%. His o2 was increased to 5 liters nasal canula. 2 view CXR shows pulmonary vascular congestion without overt edema, enlarged cardiac silhouette. The day after admission, patient acutely decompensated after ECHO done. I resumed IV lasix as he was given a dose of IV lasix x 1 in ED but none was ordered thereafter. ABGs done, 7.149/ 124.7/55.1/42.4; therefore, bipap started, more lasix ordered, [employer] and Cardiology consulted, moved to [facility] on 07/31/2019. Repeat ABGs on bipap 50% 7.361/75.4/71.9/41.8 * TTE Conclusions: Global LVSF is at the lower limits of normal, estimated EF is 50-55%, trace MR, right heart chambers are both dilated, trace TR, study quality is technically difficult. * 2 view CXR shows pulmonary vascular congestion without overt edema, enlarged cardiac silhouette. Acute on chronic hypoxic respiratory failure due to p. edema: treat with iv lasix Acute onset of diastolic heart failure: treat with IV lasix, consult Cardiology Acute Respiratory Acidosis suspected: start bipap, move to [facility], no beds in ICU per charge nurse Anasarca/ascites: treat with diurectics H/o COPD: treat with prn albuterol DVT ppx sq heparin full code History Interval history: Patient was seen and examined. Follow-up on current diagnosis CHF with SOB. Imaging, nursing note, chart, labs and old chart reviewed. Discussed with sarah ent. Hospitalist Physical - Physical exam Narrative exam: Gen: ill appearing obese bmi 37.4, WDWN, NAD, Awake, Alert, Orientated HEENT: NCAT, EOMI, PERRL, OP Clear Neck: supple, no adenopathy, no thyromegaly,+ JVD CVS/Heart: RRR, normal S1S2, pulses present bilaterally Chest/Lungs: bibasilar crackles Symmetrical chest expansion, good air entry bilaterally GI/Abdomen: soft, distensed, flank anasarca, /Bladder: no suprapubic tenderness, no CVA or paraspinal tenderness Extermity/Skin: 3+ble pitting edema, no obvious rash MSK: FROM x 4 Neuro: CN 2-12 grossly intact, no new focal deficits Psych: calm - Constitutional Vitals: Temp Pulse Resp BP Pulse Ox 99.1 F 88 20 123/81 89 08/02/19 15:41 08/02/19 16:06 08/02/19 16:06 08/02/19 16:01 08/02/19 16:01 General appearance: Present: no acute distress Results - Labs CBC & Chem 7: 08/02/19 03:39 08/02/19 03:39 Labs: Laboratory Last Values WBC 7.3 K/mm3 (4.5-11.0) 08/02/19 03:39 RBC 4.90 M/mm3 (3.65-5.03) 08/02/19 03:39 Hgb 11.7 gm/dl (11.8-15.2) L 08/02/19 03:39 Hct 38.4 % (35.5-45.6) 08/02/19 03:39 MCV 78 fl (84-94) L 08/02/19 03:39 MCH 24 pg (28-32) L 08/02/19 03:39 MCHC 30 % (32-34) L 08/02/19 03:39 RDW 18.7 % (13.2-15.2) H 08/02/19 03:39 Plt Count 253 K/mm3 (140-440) 08/02/19 03:39 Lymph % (Auto) 20.2 % (13.4-35.0) 07/31/19 04:37 [place] % (Auto) 12.0 % (0.0-7.3) H 07/31/19 04:37 Eos % (Auto) 7.2 % (0.0-4.3) H 07/31/19 04:37 Baso % (Auto) 1.0 % (0.0-1.8) 07/31/19 04:37 Lymph # 1.4 K/mm3 (1.2-5.4) 07/31/19 04:37 [place] # 0.8 K/mm3 (0.0-0.8) 07/31/19 04:37 Eos # 0.5 K/mm3 (0.0-0.4) H 07/31/19 04:37 Baso # 0.1 K/mm3 (0.0-0.1) 07/31/19 04:37 Seg Neutrophils % 59.6 % (40.0-70.0) 07/31/19 04:37 Seg Neutrophils # 4.2 K/mm3 (1.8-7.7) 07/31/19 04:37 ABG pH 7.361 pH Units (7.350-7.450) 08/01/19 00:25 ABG pCO2 75.4 mm Hg 08/01/19 00:25 ABG pO2 71.9 mm Hg (80.0-90.0) L 08/01/19 00:25 ABG HCO3 41.8 mmol/L (20.0-26.0) H 08/01/19 00:25 ABG O2 Saturation 95.2 % (95.0-99.0) 08/01/19 00:25 ABG O2 Content 15.4 (0.0-44) 08/01/19 00:25 ABG Base Excess 13.4 mmol/L (-2.0-3.0) H 08/01/19 00:25 ABG Hemoglobin 11.8 gm/dl (14.0-18.0) L 08/01/19 00:25 ABG Carboxyhemoglobin 2.2 % (0.0-5.0) 08/01/19 00:25 ABG Methemoglobin 0.5 % (0.0-1.5) 08/01/19 00:25 Oxyhemoglobin 92.6 % (95.0-99.0) L 08/01/19 00:25 FiO2 50 % 08/01/19 00:25 Sodium 142 mmol/L (137-145) 08/02/19 03:39 Potassium 4.2 mmol/L (3.6-5.0) 08/02/19 03:39 Chloride 93.1 mmol/L (98-107) L 08/02/19 03:39 Carbon Dioxide 39 mmol/L (22-30) H 08/02/19 03:39 Anion Gap 14 mmol/L 08/02/19 03:39 BUN 13 mg/dL (9-20) 08/02/19 03:39 Creatinine 0.8 mg/dL (0.8-1.5) 08/02/19 03:39 Estimated GFR > 60 ml/min 08/02/19 03:39 BUN/Creatinine Ratio 16 % 08/02/19 03:39 Glucose 71 mg/dL (75-100) L 08/02/19 03:39 Hemoglobin A1c 7.2 % (4-6) H 07/30/19 19:13 Calcium 8.7 mg/dL (8.4-10.2) 08/02/19 03:39 Total Bilirubin 0.50 mg/dL (0.1-1.2) 07/31/19 04:37 AST 26 units/L (5-40) 07/31/19 04:37 ALT 16 units/L (7-56) 07/31/19 04:37 Alkaline Phosphatase 101 units/L (35-129) 07/31/19 04:37 Troponin T < 0.010 ng/mL (0.00-0.029) 07/30/19 12:30 NT-Pro-B Natriuret Pep 4074 pg/mL (0-900) H 07/30/19 12:30 Total Protein 7.0 g/dL (6.3-8.2) 07/31/19 04:37 Albumin 3.8 g/dL (3.9-5) L 07/31/19 04:37 Albumin/Globulin Ratio 1.2 % 07/31/19 04:37 Active Medications - Current Medications Current Medications: Generic Name Dose Route Start Last Admin Trade Name Freq PRN Reason Stop Dose Admin Acetaminophen 650 mg 07/30/19 18:58 Tylenol PO Q4H PRN Pain MILD(1-3)/Fever >100.5/WILLIS Arformoterol Tartrate 15 mcg 08/02/19 11:15 08/02/19 16:06 Brovana Nebu IH 15 mcg Q12HRT SHANE Administration Atorvastatin Calcium 20 mg 08/01/19 22:00 08/01/19 23:00 Lipitor PO 20 mg HS SHANE Administration Budesonide 0.5 mg 08/02/19 11:15 08/02/19 16:06 Pulmicort IH 0.5 mg Q12HRT SHANE Administration Famotidine 20 mg 07/30/19 22:00 08/02/19 10:34 Pepcid PO 20 mg BID SHANE Administration Furosemide 40 mg 07/31/19 18:00 08/01/19 19:52 Lasix IV 40 mg 0600,1800 SHANE Administration Hydromorphone HCl 1 mg 07/30/19 18:58 07/31/19 21:40 Dilaudid IV 1 mg Q3H PRN Administration Pain , Severe (7-10) Lisinopril 20 mg 08/01/19 10:00 08/02/19 10:34 Zestril PO 20 mg DAILY SHANE Administration Methylprednisolone Sodium Succinate 60 mg 08/02/19 12:00 Solu-Medrol IV Q6HR SHANE Metoclopramide HCl 10 mg 07/30/19 18:58 Reglan IV Q6H PRN Nausea And Vomiting Ondansetron HCl 4 mg 07/30/19 18:58 Zofran IV Q8H PRN Nausea And Vomiting Oxycodone/Acetaminophen 1 tab 07/30/19 18:58 08/02/19 10:39 Percocet 5/325 PO 1 tab Q6H PRN Administration Pain, Moderate (4-6) Sodium Chloride 10 ml 07/30/19 22:00 08/02/19 10:35 Sodium Chloride Flush Syringe 10 Ml IV 10 ml BID SHANE Administration Sodium Chloride 10 ml 07/30/19 18:58 Sodium Chloride Flush Syringe 10 Ml IV PRN PRN LINE FLUSH
[2019-08-02] MEDS: methylPREDNISolone Sod Succinate 125 MG/2 ML INJ IV SCH ×2 (18:06→18:07)
[2019-08-02] MEDS: FUROSEMIDE 40 MG/4 ML INJ IV SCH (18:07)
[2019-08-03] MEDS: methylPREDNISolone Sod Succinate 125 MG/2 ML INJ IV SCH ×4 (01:00→18:38)
[2019-08-03] MEDS: FUROSEMIDE 40 MG/4 ML INJ IV SCH ×3 (05:30→18:38)
[2019-08-03] MEDS: oxyCODONE /ACETAMINOPHEN 5-325MG TAB PO PRN (05:30)
[2019-08-03 06:50] LABS: Mean Corpuscular HGB Conc 30 % (32-34); Mean Corpuscular Volume 78 fl (84-94); Platelet Count 277 K/mm3 (140-440); Red Blood Count 5.53 M/mm3 (3.65-5.03); Red Cell Distribution Width 18.8 % (13.2-15.2)
[2019-08-03 06:56] LABS: Hematocrit 43.3 % (35.5-45.6)
[2019-08-03 07:08] LABS: BUN/Creatinine Ratio 20; Blood Urea Nitrogen 20 mg/dL (9-20); Calcium 9.1 mg/dL (8.4-10.2); Hemolysis Index 1
[2019-08-03] MEDS: ARFORMOTEROL 15 MCG/2 ML NEBU IH SCH ×2 (07:19→20:45)
[2019-08-03] MEDS: BUDESONIDE 0.5 MG/2 ML NEBU IH SCH ×2 (07:20→20:45)
[2019-08-03] MEDS: FAMOTIDINE 20 MG TAB PO SCH ×2 (10:58→21:42)
[2019-08-03] MEDS: LISINOPRIL 20 MG TAB PO SCH (10:59)
--- NOTE | 2019-08-03 11:02 | Progress Note ---
Assessment and Plan 1. Chronic Diastolic heart failure 2. Essential hypertension 3. COPD Plan Cardiac cardoza stable and as per previous cardiac note patient stable no further cardiac workup planned See prn. Subjective Date of service: 08/03/19 Interval history: No cardiac symptoms. Objective Vital Signs Temp Pulse Pulse Pulse Resp Resp BP 08/03/19 10:59 88 139/81 08/03/19 08:00 99.8 F H 08/03/19 07:20 83 18 08/03/19 06:00 77 13 120/74 08/03/19 05:00 85 14 122/73 08/03/19 04:00 97.4 F L 86 79 12 124/74 08/03/19 03:00 80 14 120/74 08/03/19 02:00 80 12 129/84 08/03/19 01:00 87 13 132/45 08/03/19 00:00 97.6 F 90 79 14 146/83 08/02/19 23:00 86 15 136/70 08/02/19 22:51 94 H 16 130/78 08/02/19 22:00 86 17 130/78 08/02/19 21:00 87 127/80 08/02/19 20:00 98.0 F 88 126/65 08/02/19 19:59 87 22 08/02/19 19:21 83 20 08/02/19 19:00 89 103/59 08/02/19 18:01 87 106/82 08/02/19 17:59 98.6 F 08/02/19 17:00 84 121/78 08/02/19 16:06 88 20 08/02/19 16:01 84 123/81 08/02/19 16:00 85 85 20 08/02/19 15:41 99.1 F 08/02/19 15:01 151 H 16 109/70 08/02/19 15:00 08/02/19 14:01 152 H 15 109/70 08/02/19 13:00 87 14 125/77 08/02/19 12:00 99.1 F 90 92 H 13 140/81 Pulse Ox 08/03/19 10:59 08/03/19 08:00 08/03/19 07:20 93 08/03/19 06:00 97 08/03/19 05:00 08/03/19 04:00 97 08/03/19 03:00 94 08/03/19 02:00 93 08/03/19 01:00 89 08/03/19 00:00 93 08/02/19 23:00 95 08/02/19 22:51 93 08/02/19 22:00 92 08/02/19 21:00 93 08/02/19 20:00 89 08/02/19 19:59 93 08/02/19 19:21 91 08/02/19 19:00 89 08/02/19 18:01 94 08/02/19 17:59 08/02/19 17:00 08/02/19 16:06 08/02/19 16:01 89 08/02/19 16:00 93 08/02/19 15:41 08/02/19 15:01 86 08/02/19 15:00 95 08/02/19 14:01 92 08/02/19 13:00 83 L 08/02/19 12:00 89 - Physical Examination General: Appears Well, No Apparent Distress HEENT: Positive: PERRL, Normocephaly, Mucus Membranes Moist Neck: Positive: neck supple, trachea midline. Negative: JVD/HJR Cardiac: Positive: Regular Rate, S1/S2, PMI, Laterally Displaced Lungs: Positive: clear to auscultation, No Wheeze, Rales, Rhonchi Neuro: Positive: Grossly Intact, No Lateralizing Findings Abdomen: Positive: Unremarkable, Active Bowel Sounds Extremities: Absent: edema - Labs and Meds CBC 08/03/19 Range/Units 05:25 WBC 3.4 L (4.5-11.0) K/mm3 RBC 5.53 H (3.65-5.03) M/mm3 Hgb 13.0 (11.8-15.2) gm/dl Hct 43.3 (35.5-45.6) % Plt Count 277 (140-440) K/mm3 Comprehensive Metabolic Panel 08/03/19 Range/Units 05:25 Sodium 142 (137-145) mmol/L Potassium 5.4 H D (3.6-5.0) mmol/L Chloride 90.7 L (98-107) mmol/L Carbon Dioxide 41 H* (22-30) mmol/L BUN 20 (9-20) mg/dL Creatinine 1.0 (0.8-1.5) mg/dL Glucose 140 H (75-100) mg/dL Calcium 9.1 (8.4-10.2) mg/dL
--- NOTE | 2019-08-03 12:00 | Progress Note ---
Assessment and Plan 68 y/o with known COPD and chronic respiratory failure, admitted with acute on chronic respiratory failure. 1. Continue BID pulmicort and brovana 2. Continue IV steroids at q6 hour intervals 3. Agree with diuresis, now on BID lasix 4. Wean FiO2 for sats >88% Subjective Date of service: 08/03/19 Interval history: REfused bipap therapy last night. Still on HFNC Objective Vital Signs - 12hr 08/03/19 08/03/19 08/03/19 00:00 01:00 02:00 Temperature 97.6 F Pulse Rate 90 87 80 Pulse Rate [ Anterior Bilateral Throughout] Pulse Rate [ 79 From Monitor] Respiratory 14 13 12 Rate Respiratory Rate [Anterior Bilateral Throughout] Blood Pressure 146/83 132/45 129/84 O2 Sat by Pulse 93 89 93 Oximetry 08/03/19 08/03/19 08/03/19 03:00 04:00 05:00 Temperature 97.4 F L Pulse Rate 80 86 85 Pulse Rate [ Anterior Bilateral Throughout] Pulse Rate [ 79 From Monitor] Respiratory 14 12 14 Rate Respiratory Rate [Anterior Bilateral Throughout] Blood Pressure 120/74 124/74 122/73 O2 Sat by Pulse 94 97 Oximetry 08/03/19 08/03/19 08/03/19 06:00 07:20 08:00 Temperature 99.8 F H Pulse Rate 77 Pulse Rate [ 83 Anterior Bilateral Throughout] Pulse Rate [ From Monitor] Respiratory 13 Rate Respiratory 18 Rate [Anterior Bilateral Throughout] Blood Pressure 120/74 O2 Sat by Pulse 97 93 Oximetry 08/03/19 10:59 Temperature Pulse Rate 88 Pulse Rate [ Anterior Bilateral Throughout] Pulse Rate [ From Monitor] Respiratory Rate Respiratory Rate [Anterior Bilateral Throughout] Blood Pressure 139/81 O2 Sat by Pulse Oximetry CBC and BMP: 08/03/19 05:25 08/03/19 05:25 ABG, PT/INR, D-dimer: ABG ABG pH 7.361 pH Units (7.350-7.450) 08/01/19 00:25 ABG pCO2 75.4 mm Hg 08/01/19 00:25 ABG pO2 71.9 mm Hg (80.0-90.0) L 08/01/19 00:25 ABG O2 Saturation 95.2 % (95.0-99.0) 08/01/19 00:25 Abnormal lab findings: Abnormal Labs 07/30/19 07/30/19 07/30/19 12:30 12:30 12:30 WBC RBC 5.22 H Hgb MCV 79 L MCH 23 L MCHC 30 L RDW 18.8 H [place] % (Auto) 9.8 H Eos % (Auto) 6.6 H Lymph # 1.0 L Eos # 0.5 H ABG pH ABG pO2 ABG HCO3 ABG O2 Saturation ABG Base Excess ABG Hemoglobin Oxyhemoglobin Sodium Potassium Chloride Carbon Dioxide 31 H BUN 8 L Glucose Hemoglobin A1c NT-Pro-B Natriuret Pep 4074 H Albumin 3.8 L 07/30/19 07/31/19 07/31/19 19:13 04:37 04:37 WBC RBC 5.16 H Hgb MCV 80 L MCH 23 L MCHC 29 L RDW 18.8 H [place] % (Auto) 12.0 H Eos % (Auto) 7.2 H Lymph # Eos # 0.5 H ABG pH ABG pO2 ABG HCO3 ABG O2 Saturation ABG Base Excess ABG Hemoglobin Oxyhemoglobin Sodium 147 H Potassium Chloride Carbon Dioxide 38 H D BUN Glucose Hemoglobin A1c 7.2 H NT-Pro-B Natriuret Pep Albumin 3.8 L 07/31/19 08/01/19 08/01/19 16:50 00:25 07:54 WBC RBC Hgb MCV MCH MCHC RDW [place] % (Auto) Eos % (Auto) Lymph # Eos # ABG pH 7.149 L* ABG pO2 55.1 L 71.9 L ABG HCO3 42.4 H 41.8 H ABG O2 Saturation 81.6 L ABG Base Excess 9.3 H 13.4 H ABG Hemoglobin 12.3 L 11.8 L Oxyhemoglobin 79.4 L 92.6 L Sodium 146 H Potassium Chloride 97.7 L Carbon Dioxide 36 H BUN Glucose Hemoglobin A1c NT-Pro-B Natriuret Pep Albumin 08/02/19 08/02/19 08/03/19 03:39 03:39 05:25 WBC 3.4 L RBC 5.53 H Hgb 11.7 L MCV 78 L 78 L MCH 24 L 24 L MCHC 30 L 30 L RDW 18.7 H 18.8 H [place] % (Auto) Eos % (Auto) Lymph # Eos # ABG pH ABG pO2 ABG HCO3 ABG O2 Saturation ABG Base Excess ABG Hemoglobin Oxyhemoglobin Sodium Potassium Chloride 93.1 L Carbon Dioxide 39 H BUN Glucose 71 L Hemoglobin A1c NT-Pro-B Natriuret Pep Albumin 08/03/19 05:25 WBC RBC Hgb MCV MCH MCHC RDW [place] % (Auto) Eos % (Auto) Lymph # Eos # ABG pH ABG pO2 ABG HCO3 ABG O2 Saturation ABG Base Excess ABG Hemoglobin Oxyhemoglobin Sodium Potassium 5.4 H D Chloride 90.7 L Carbon Dioxide 41 H* BUN Glucose 140 H Hemoglobin A1c NT-Pro-B Natriuret Pep Albumin
--- NOTE | 2019-08-03 16:30 | Progress Note ---
Assessment and Plan Assessment and plan: Patient is a 68 yo man with a history of hypertension, prior tobacco dependency, dyslipidemia, OA with a cane and chronic hypoxic respiratory failure on 2 liters of home O2 due to COPD who presents to [facility] ED with SOB, leg edema. Pulse Ox documented in ED was 70%. His o2 was increased to 5 liters nasal canula. 2 view CXR shows pulmonary vascular congestion without overt edema, enlarged cardiac silhouette. The day after admission, patient acutely decompensated after ECHO done. I resumed IV lasix as he was given a dose of IV lasix x 1 in ED but none was ordered thereafter. ABGs done, 7.149/ 124.7/55.1/42.4; therefore, bipap started, more lasix ordered, [employer]ophone [employer] and Cardiology consulted, moved to [facility] on 07/31/2019. Repeat ABGs on bipap 50% 7.361/75.4/71.9/41.8 * TTE Conclusions: Global LVSF is at the lower limits of normal, estimated EF is 50-55%, trace MR, right heart chambers are both dilated, trace TR, study quality is technically difficult. * 2 view CXR shows pulmonary vascular congestion without overt edema, enlarged cardiac silhouette. Acute on chronic hypoxic respiratory failure due to p. edema: treat with iv lasix Acute onset of diastolic heart failure: treat with IV lasix, consult Cardiology Acute Respiratory Acidosis suspected: started bipap which helped, now on high flow Anasarca/ascites: treat with diurectics H/o COPD: treat with prn albuterol DVT ppx sq heparin full code Disposition: continue inpatient care as he is till hypoxic, will transfer to [facility] as he is off bipap. History Interval history: Patient was seen and examined. Follow-up on current diagnosis CHF with SOB. Imaging, nursing note, chart, labs and old chart reviewed. Discussed with patient. Overnight, he became anxious and started removing O2, he wants to go home but he lives alone and denies any family will help him, will reach out to psychosocial rehabilitation counselor. He is still on 50% high flow o2. Hospitalist Physical - Physical exam Narrative exam: Gen: ill appearing obese bmi 37.4, WDWN, NAD, Awake, Alert, Orientated HEENT: NCAT, EOMI, PERRL, OP Clear Neck: supple, no adenopathy, no thyromegaly,+ JVD CVS/Heart: RRR, normal S1S2, pulses present bilaterally Chest/Lungs: bibasilar crackles Symmetrical chest expansion, good air entry bilaterally GI/Abdomen: soft, distensed, flank anasarca, /Bladder: no suprapubic tenderness, no CVA or paraspinal tenderness Extermity/Skin: 3+ble pitting edema, no obvious rash MSK: FROM x 4 Neuro: CN 2-12 grossly intact, no new focal deficits Psych: calm - Constitutional Vitals: Temp Pulse Resp BP Pulse Ox 98.3 F 83 17 107/47 94 08/03/19 12:00 08/03/19 15:00 08/03/19 15:00 08/03/19 15:00 08/03/19 15:00 General appearance: Present: no acute distress Results - Labs CBC & Chem 7: 08/03/19 05:25 08/03/19 05:25 Labs: Laboratory Last Values WBC 3.4 K/mm3 (4.5-11.0) L 08/03/19 05:25 RBC 5.53 M/mm3 (3.65-5.03) H 08/03/19 05:25 Hgb 13.0 gm/dl (11.8-15.2) 08/03/19 05:25 Hct 43.3 % (35.5-45.6) 08/03/19 05:25 MCV 78 fl (84-94) L 08/03/19 05:25 MCH 24 pg (28-32) L 08/03/19 05:25 MCHC 30 % (32-34) L 08/03/19 05:25 RDW 18.8 % (13.2-15.2) H 08/03/19 05:25 Plt Count 277 K/mm3 (140-440) 08/03/19 05:25 Lymph % (Auto) 20.2 % (13.4-35.0) 07/31/19 04:37 [place] % (Auto) 12.0 % (0.0-7.3) H 07/31/19 04:37 Eos % (Auto) 7.2 % (0.0-4.3) H 07/31/19 04:37 Baso % (Auto) 1.0 % (0.0-1.8) 07/31/19 04:37 Lymph # 1.4 K/mm3 (1.2-5.4) 07/31/19 04:37 [place] # 0.8 K/mm3 (0.0-0.8) 07/31/19 04:37 Eos # 0.5 K/mm3 (0.0-0.4) H 07/31/19 04:37 Baso # 0.1 K/mm3 (0.0-0.1) 07/31/19 04:37 Seg Neutrophils % 59.6 % (40.0-70.0) 07/31/19 04:37 Seg Neutrophils # 4.2 K/mm3 (1.8-7.7) 07/31/19 04:37 ABG pH 7.361 pH Units (7.350-7.450) 08/01/19 00:25 ABG pCO2 75.4 mm Hg 08/01/19 00:25 ABG pO2 71.9 mm Hg (80.0-90.0) L 08/01/19 00:25 ABG HCO3 41.8 mmol/L (20.0-26.0) H 08/01/19 00:25 ABG O2 Saturation 95.2 % (95.0-99.0) 08/01/19 00:25 ABG O2 Content 15.4 (0.0-44) 08/01/19 00:25 ABG Base Excess 13.4 mmol/L (-2.0-3.0) H 08/01/19 00:25 ABG Hemoglobin 11.8 gm/dl (14.0-18.0) L 08/01/19 00:25 ABG Carboxyhemoglobin 2.2 % (0.0-5.0) 08/01/19 00:25 ABG Methemoglobin 0.5 % (0.0-1.5) 08/01/19 00:25 Oxyhemoglobin 92.6 % (95.0-99.0) L 08/01/19 00:25 FiO2 50 % 08/01/19 00:25 Sodium 142 mmol/L (137-145) 08/03/19 05:25 Potassium 5.4 mmol/L (3.6-5.0) H D 08/03/19 05:25 Chloride 90.7 mmol/L (98-107) L 08/03/19 05:25 Carbon Dioxide 41 mmol/L (22-30) H* 08/03/19 05:25 Anion Gap 16 mmol/L 08/03/19 05:25 BUN 20 mg/dL (9-20) 08/03/19 05:25 Creatinine 1.0 mg/dL (0.8-1.5) 08/03/19 05:25 Estimated GFR > 60 ml/min 08/03/19 05:25 BUN/Creatinine Ratio 20 % 08/03/19 05:25 Glucose 140 mg/dL (75-100) H 08/03/19 05:25 Hemoglobin A1c 7.2 % (4-6) H 07/30/19 19:13 Calcium 9.1 mg/dL (8.4-10.2) 08/03/19 05:25 Total Bilirubin 0.50 mg/dL (0.1-1.2) 07/31/19 04:37 AST 26 units/L (5-40) 07/31/19 04:37 ALT 16 units/L (7-56) 07/31/19 04:37 Alkaline Phosphatase 101 units/L (35-129) 07/31/19 04:37 Troponin T < 0.010 ng/mL (0.00-0.029) 07/30/19 12:30 NT-Pro-B Natriuret Pep 4074 pg/mL (0-900) H 07/30/19 12:30 Total Protein 7.0 g/dL (6.3-8.2) 07/31/19 04:37 Albumin 3.8 g/dL (3.9-5) L 07/31/19 04:37 Albumin/Globulin Ratio 1.2 % 07/31/19 04:37 Active Medications - Current Medications Current Medications: Generic Name Dose Route Start Last Admin Trade Name Freq PRN Reason Stop Dose Admin Acetaminophen 650 mg 07/30/19 18:58 Tylenol PO Q4H PRN Pain MILD(1-3)/Fever >100.5/WILLIS Arformoterol Tartrate 15 mcg 08/02/19 11:15 08/03/19 07:19 Brovana Nebu IH 15 mcg Q12HRT SHANE Administration Atorvastatin Calcium 20 mg 08/01/19 22:00 08/02/19 21:02 Lipitor PO 20 mg HS SHANE Administration Budesonide 0.5 mg 08/02/19 11:15 08/03/19 07:20 Pulmicort IH 0.5 mg Q12HRT SHANE Administration Famotidine 20 mg 07/30/19 22:00 08/03/19 10:58 Pepcid PO 20 mg BID SHANE Administration Furosemide 40 mg 07/31/19 18:00 08/03/19 05:30 Lasix IV 40 mg 0600,1800 SHANE Administration Hydromorphone HCl 1 mg 07/30/19 18:58 07/31/19 21:40 Dilaudid IV 1 mg Q3H PRN Administration Pain , Severe (7-10) Lisinopril 20 mg 08/01/19 10:00 08/03/19 10:59 Zestril PO 20 mg DAILY SHANE Administration Methylprednisolone Sodium Succinate 60 mg 08/02/19 12:00 08/03/19 12:26 Solu-Medrol IV 60 mg Q6HR SHANE Administration Metoclopramide HCl 10 mg 07/30/19 18:58 Reglan IV Q6H PRN Nausea And Vomiting Ondansetron HCl 4 mg 07/30/19 18:58 Zofran IV Q8H PRN Nausea And Vomiting Oxycodone/Acetaminophen 1 tab 07/30/19 18:58 08/03/19 05:30 Percocet 5/325 PO 1 tab Q6H PRN Administration Pain, Moderate (4-6) Sodium Chloride 10 ml 07/30/19 22:00 08/03/19 10:59 Sodium Chloride Flush Syringe 10 Ml IV 10 ml BID SHANE Administration Sodium Chloride 10 ml 07/30/19 18:58 Sodium Chloride Flush Syringe 10 Ml IV PRN PRN LINE FLUSH
[2019-08-04] MEDS: methylPREDNISolone Sod Succinate 125 MG/2 ML INJ IV SCH ×4 (01:30→17:11)
[2019-08-04] MEDS: FUROSEMIDE 40 MG/4 ML INJ IV SCH ×2 (06:23→17:11)
[2019-08-04] MEDS: FAMOTIDINE 20 MG TAB PO SCH ×2 (09:12→21:26)
[2019-08-04] MEDS: LISINOPRIL 20 MG TAB PO SCH (09:13)
[2019-08-04] MEDS: BUDESONIDE 0.5 MG/2 ML NEBU IH SCH ×2 (10:03→20:42)
[2019-08-04] MEDS: ARFORMOTEROL 15 MCG/2 ML NEBU IH SCH ×2 (10:04→20:42)
--- NOTE | 2019-08-04 10:14 | Progress Note ---
Assessment and Plan 68 y/o with known COPD and chronic respiratory failure, admitted with acute on chronic respiratory failure. 1. Continue BID pulmicort and brovana 2. Continue IV steroids at q6 hour intervals, not ready to wean yet. 3. Agree with diuresis, now on BID lasix 4. Wean FiO2 for sats >88% 5. Repeat CXR today as sats are not improving. I suspect that this is from him not wearing the oxygen therapy as he should be need to make sure CXR is not worsening. Subjective Date of service: 08/04/19 Interval history: no acute events. Remains on HFNC. Sats in the high 80's. No distress noted. Continues to take HFNC off for extended periods. Objective Vital Signs - 12hr 08/03/19 08/04/19 08/04/19 23:39 03:18 03:46 Temperature 98.0 F Pulse Rate 108 H 83 Respiratory 18 Rate Blood Pressure 123/67 O2 Sat by Pulse 88 89 Oximetry 08/04/19 08/04/19 08/04/19 05:37 07:30 09:13 Temperature 98.0 F 98.1 F Pulse Rate 82 86 158 H Respiratory 18 18 Rate Blood Pressure 139/83 131/81 115/68 O2 Sat by Pulse 89 91 Oximetry CBC and BMP: 08/03/19 05:25 08/03/19 05:25 ABG, PT/INR, D-dimer: ABG ABG pH 7.361 pH Units (7.350-7.450) 08/01/19 00:25 ABG pCO2 75.4 mm Hg 08/01/19 00:25 ABG pO2 71.9 mm Hg (80.0-90.0) L 08/01/19 00:25 ABG O2 Saturation 95.2 % (95.0-99.0) 08/01/19 00:25 Abnormal lab findings: Abnormal Labs 07/30/19 07/30/19 07/30/19 12:30 12:30 12:30 WBC RBC 5.22 H Hgb MCV 79 L MCH 23 L MCHC 30 L RDW 18.8 H [place] % (Auto) 9.8 H Eos % (Auto) 6.6 H Lymph # 1.0 L Eos # 0.5 H ABG pH ABG pO2 ABG HCO3 ABG O2 Saturation ABG Base Excess ABG Hemoglobin Oxyhemoglobin Sodium Potassium Chloride Carbon Dioxide 31 H BUN 8 L Glucose POC Glucose Hemoglobin A1c NT-Pro-B Natriuret Pep 4074 H Albumin 3.8 L 07/30/19 07/31/19 07/31/19 19:13 04:37 04:37 WBC RBC 5.16 H Hgb MCV 80 L MCH 23 L MCHC 29 L RDW 18.8 H [place] % (Auto) 12.0 H Eos % (Auto) 7.2 H Lymph # Eos # 0.5 H ABG pH ABG pO2 ABG HCO3 ABG O2 Saturation ABG Base Excess ABG Hemoglobin Oxyhemoglobin Sodium 147 H Potassium Chloride Carbon Dioxide 38 H D BUN Glucose POC Glucose Hemoglobin A1c 7.2 H NT-Pro-B Natriuret Pep Albumin 3.8 L 07/31/19 08/01/19 08/01/19 16:50 00:25 07:54 WBC RBC Hgb MCV MCH MCHC RDW [place] % (Auto) Eos % (Auto) Lymph # Eos # ABG pH 7.149 L* ABG pO2 55.1 L 71.9 L ABG HCO3 42.4 H 41.8 H ABG O2 Saturation 81.6 L ABG Base Excess 9.3 H 13.4 H ABG Hemoglobin 12.3 L 11.8 L Oxyhemoglobin 79.4 L 92.6 L Sodium 146 H Potassium Chloride 97.7 L Carbon Dioxide 36 H BUN Glucose POC Glucose Hemoglobin A1c NT-Pro-B Natriuret Pep Albumin 08/02/19 08/02/19 08/03/19 03:39 03:39 05:25 WBC 3.4 L RBC 5.53 H Hgb 11.7 L MCV 78 L 78 L MCH 24 L 24 L MCHC 30 L 30 L RDW 18.7 H 18.8 H [place] % (Auto) Eos % (Auto) Lymph # Eos # ABG pH ABG pO2 ABG HCO3 ABG O2 Saturation ABG Base Excess ABG Hemoglobin Oxyhemoglobin Sodium Potassium Chloride 93.1 L Carbon Dioxide 39 H BUN Glucose 71 L POC Glucose Hemoglobin A1c NT-Pro-B Natriuret Pep Albumin 08/03/19 08/04/19 05:25 08:09 WBC RBC Hgb MCV MCH MCHC RDW [place] % (Auto) Eos % (Auto) Lymph # Eos # ABG pH ABG pO2 ABG HCO3 ABG O2 Saturation ABG Base Excess ABG Hemoglobin Oxyhemoglobin Sodium Potassium 5.4 H D Chloride 90.7 L Carbon Dioxide 41 H* BUN Glucose 140 H POC Glucose 139 H Hemoglobin A1c NT-Pro-B Natriuret Pep Albumin
--- NOTE | 2019-08-04 10:26 | Progress Note ---
Assessment and Plan Paroxysmal Afib/flutter s/p adenosine 6 and 12 mg Chronic diastolic heart failure patient follows with Dr Yaw Thomson at [facility] Chronic respiratory failure Chronic lower extremity edema Hx of COPD An echo this admission reports normal LVEF 50-55%. An echo done 08/2018 revealed normal LVEF. A dobutamine stress echo performed 08/2018 showed no inducible ischemia. A cardiac PET scan done at [place] in 2017 revealed normal perfusion scan. Subjective Date of service: 08/04/19 Interval history: Patient is resting in bed comfortably. Remains on high flow oxygen. He has no complaints. SVT versus rapid afib/flutter on telemetry this morning. Objective Vital Signs Temp Pulse Pulse Pulse Resp Resp BP 08/04/19 10:16 08/04/19 09:58 156 H 21 08/04/19 09:13 158 H 115/68 08/04/19 07:30 98.1 F 86 18 131/81 08/04/19 05:37 98.0 F 82 18 139/83 08/04/19 03:46 83 08/04/19 03:18 08/03/19 23:39 98.0 F 108 H 18 123/67 08/03/19 22:00 88 16 08/03/19 20:47 94 H 20 08/03/19 20:28 08/03/19 19:50 96 H 08/03/19 19:41 124/69 08/03/19 19:31 97 H 18 124/69 08/03/19 19:21 89 20 124/69 08/03/19 19:11 94 H 20 124/69 08/03/19 19:00 96 H 19 124/69 08/03/19 18:51 96 H 18 131/73 08/03/19 18:41 99 H 23 131/73 08/03/19 18:37 102 H 16 131/73 08/03/19 18:00 93 H 17 131/73 08/03/19 17:01 86 17 131/85 08/03/19 16:00 98.5 F 81 88 16 115/54 08/03/19 15:00 83 17 107/47 08/03/19 14:00 90 18 113/59 08/03/19 13:00 83 15 102/57 08/03/19 12:00 98.3 F 86 83 14 117/64 08/03/19 11:00 84 15 120/66 08/03/19 10:59 88 139/81 Pulse Ox 08/04/19 10:16 97 08/04/19 09:58 08/04/19 09:13 08/04/19 07:30 91 08/04/19 05:37 89 08/04/19 03:46 08/04/19 03:18 89 08/03/19 23:39 88 08/03/19 22:00 08/03/19 20:47 08/03/19 20:28 91 08/03/19 19:50 08/03/19 19:41 94 08/03/19 19:31 93 08/03/19 19:21 93 08/03/19 19:11 93 08/03/19 19:00 93 08/03/19 18:51 95 08/03/19 18:41 95 08/03/19 18:37 95 08/03/19 18:00 94 08/03/19 17:01 95 08/03/19 16:00 94 08/03/19 15:00 94 08/03/19 14:00 94 08/03/19 13:00 93 08/03/19 12:00 93 08/03/19 11:00 08/03/19 10:59 - Physical Examination General: No Apparent Distress HEENT: Positive: PERRL Neck: Positive: trachea midline Cardiac: Positive: Reg Rate and Rhythm Lungs: Positive: Decreased Breath Sounds Neuro: Positive: Grossly Intact
[2019-08-04] MEDS ORDERED: ADENOSINE 6 MG/2 ML INJ IV ONE (11:28)
[2019-08-04] MEDS ORDERED: ADENOSINE 6 MG/2 ML INJ IV PRN (11:28)
[2019-08-04] MEDS ORDERED: dilTIAZem 25 MG/5 ML INJ IV ONE (12:00)
[2019-08-04] MEDS ORDERED: METOPROLOL TARTRATE 5 MG/5 ML INJ IV PRN (12:10)
[2019-08-04] MEDS ORDERED: dilTIAZem 50 MG/10 ML INJ IV ONE (12:30)
[2019-08-04] MEDS: dilTIAZem/D5W 100 MG/100 ML BAG IV SCH (14:12)
--- NOTE | 2019-08-04 14:48 | XRay Report ---
CHEST 1 VIEW 08/04/2019 1:52 PM INDICATION / CLINICAL INFORMATION: Continued hypoxemia, despite diuresis. COMPARISON: 07/30/19 FINDINGS: SUPPORT DEVICES: None. HEART / MEDIASTINUM: Heart is mildly enlarged but stable. LUNGS / PLEURA: Interval improvement in borderline interstitial edema. No acute airspace disease. No pneumothorax. ADDITIONAL FINDINGS: No significant additional findings. IMPRESSION: 1. Stable cardiomegaly with interval improvement in borderline interstitial edema. Signer Name: Joel Mobley MD Signed: 08/04/2019 2:43 PM Workstation Name: [id number]
--- NOTE | 2019-08-04 16:17 | Progress Note ---
Assessment and Plan Assessment and plan: Patient is a 68 yo man with a history of hypertension, prior tobacco dependency, dyslipidemia, OA with a cane and chronic hypoxic respiratory failure on 2 liters of home O2 due to COPD who presents to [facility] ED with SOB, leg edema. Pulse Ox documented in ED was 70%. His o2 was increased to 5 liters nasal canula. 2 view CXR shows pulmonary vascular congestion without overt edema, enlarged cardiac silhouette. The day after admission, patient acutely decompensated after ECHO done. I resumed IV lasix as he was given a dose of IV lasix x 1 in ED but none was ordered thereafter. ABGs done, 7.149/ 124.7/55.1/42.4; therefore, bipap started, more lasix ordered, Senior Site Manager and Cardiology consulted, moved to [facility] on 07/31/2019. Repeat ABGs on bipap 50% 7.361/75.4/71.9/41.8. Transfer to telemetry on Sunday. * TTE Conclusions: Global LVSF is at the lower limits of normal, estimated EF is 50-55%, trace MR, right heart chambers are both dilated, trace TR, study quality is technically difficult. * 2 view CXR shows pulmonary vascular congestion without overt edema, enlarged cardiac silhouette. Acute on chronic hypoxic respiratory failure due to p. edema: treat with iv lasix Acute onset of diastolic heart failure: treat with IV lasix, consult Cardiology Acute Respiratory Acidosis suspected: started bipap which helped, now on high flow Anasarca/ascites: treat with diurectics H/o COPD: treat with prn albuterol DVT ppx sq heparin full code Disposition: continue inpatient care as he is still hypoxic and confused, needing restraint, also Narrow complex tachycardia, IV adenosine given x 2 without success, IV cardizem to be started. will need placement History Interval history: Patient was seen and examined. Follow-up on current diagnosis CHF with SOB. Imaging, nursing note, chart, labs and old chart reviewed. Discussed with patient. Overnight, he became anxious and started removing O2, he wants to go home but he lives alone and denies any family will help him, will reach out to social services technician. He is still on 40% high flow o2. He is confused, also in NSVT Hospitalist Physical - Physical exam Narrative exam: Gen: ill appearing obese bmi 37.4, WDWN, NAD, Awake, Alert, Orientated HEENT: NCAT, EOMI, PERRL, OP Clear Neck: supple, no adenopathy, no thyromegaly,+ JVD CVS/Heart: RRR, normal S1S2, pulses present bilaterally Chest/Lungs: bibasilar crackles Symmetrical chest expansion, good air entry bilaterally GI/Abdomen: soft, distensed, flank anasarca, /Bladder: no suprapubic tenderness, no CVA or paraspinal tenderness Extermity/Skin: 3+ble pitting edema, no obvious rash MSK: FROM x 4 Neuro: CN 2-12 grossly intact, no new focal deficits Psych: calm - Constitutional Vitals: Temp Pulse Resp BP Pulse Ox 98.6 F 112 H 20 108/64 90 08/04/19 16:07 08/04/19 16:07 08/04/19 16:07 08/04/19 16:07 08/04/19 16:07 General appearance: Present: no acute distress Results - Labs CBC & Chem 7: 08/03/19 05:25 08/03/19 05:25 Labs: Laboratory Last Values WBC 3.4 K/mm3 (4.5-11.0) L 08/03/19 05:25 RBC 5.53 M/mm3 (3.65-5.03) H 08/03/19 05:25 Hgb 13.0 gm/dl (11.8-15.2) 08/03/19 05:25 Hct 43.3 % (35.5-45.6) 08/03/19 05:25 MCV 78 fl (84-94) L 08/03/19 05:25 MCH 24 pg (28-32) L 08/03/19 05:25 MCHC 30 % (32-34) L 08/03/19 05:25 RDW 18.8 % (13.2-15.2) H 08/03/19 05:25 Plt Count 277 K/mm3 (140-440) 08/03/19 05:25 Lymph % (Auto) 20.2 % (13.4-35.0) 07/31/19 04:37 [place] % (Auto) 12.0 % (0.0-7.3) H 07/31/19 04:37 Eos % (Auto) 7.2 % (0.0-4.3) H 07/31/19 04:37 Baso % (Auto) 1.0 % (0.0-1.8) 07/31/19 04:37 Lymph # 1.4 K/mm3 (1.2-5.4) 07/31/19 04:37 [place] # 0.8 K/mm3 (0.0-0.8) 07/31/19 04:37 Eos # 0.5 K/mm3 (0.0-0.4) H 07/31/19 04:37 Baso # 0.1 K/mm3 (0.0-0.1) 07/31/19 04:37 Seg Neutrophils % 59.6 % (40.0-70.0) 07/31/19 04:37 Seg Neutrophils # 4.2 K/mm3 (1.8-7.7) 07/31/19 04:37 ABG pH 7.361 pH Units (7.350-7.450) 08/01/19 00:25 ABG pCO2 75.4 mm Hg 08/01/19 00:25 ABG pO2 71.9 mm Hg (80.0-90.0) L 08/01/19 00:25 ABG HCO3 41.8 mmol/L (20.0-26.0) H 08/01/19 00:25 ABG O2 Saturation 95.2 % (95.0-99.0) 08/01/19 00:25 ABG O2 Content 15.4 (0.0-44) 08/01/19 00:25 ABG Base Excess 13.4 mmol/L (-2.0-3.0) H 08/01/19 00:25 ABG Hemoglobin 11.8 gm/dl (14.0-18.0) L 08/01/19 00:25 ABG Carboxyhemoglobin 2.2 % (0.0-5.0) 08/01/19 00:25 ABG Methemoglobin 0.5 % (0.0-1.5) 08/01/19 00:25 Oxyhemoglobin 92.6 % (95.0-99.0) L 08/01/19 00:25 FiO2 50 % 08/01/19 00:25 Sodium 142 mmol/L (137-145) 08/03/19 05:25 Potassium 5.4 mmol/L (3.6-5.0) H D 08/03/19 05:25 Chloride 90.7 mmol/L (98-107) L 08/03/19 05:25 Carbon Dioxide 41 mmol/L (22-30) H* 08/03/19 05:25 Anion Gap 16 mmol/L 08/03/19 05:25 BUN 20 mg/dL (9-20) 08/03/19 05:25 Creatinine 1.0 mg/dL (0.8-1.5) 08/03/19 05:25 Estimated GFR > 60 ml/min 08/03/19 05:25 BUN/Creatinine Ratio 20 % 08/03/19 05:25 Glucose 140 mg/dL (75-100) H 08/03/19 05:25 POC Glucose 139 (70-105) H 08/04/19 08:09 Hemoglobin A1c 7.2 % (4-6) H 07/30/19 19:13 Calcium 9.1 mg/dL (8.4-10.2) 08/03/19 05:25 Total Bilirubin 0.50 mg/dL (0.1-1.2) 07/31/19 04:37 AST 26 units/L (5-40) 07/31/19 04:37 ALT 16 units/L (7-56) 07/31/19 04:37 Alkaline Phosphatase 101 units/L (35-129) 07/31/19 04:37 Troponin T < 0.010 ng/mL (0.00-0.029) 07/30/19 12:30 NT-Pro-B Natriuret Pep 4074 pg/mL (0-900) H 07/30/19 12:30 Total Protein 7.0 g/dL (6.3-8.2) 07/31/19 04:37 Albumin 3.8 g/dL (3.9-5) L 07/31/19 04:37 Albumin/Globulin Ratio 1.2 % 07/31/19 04:37 Active Medications - Current Medications Current Medications: Generic Name Dose Route Start Last Admin Trade Name Freq PRN Reason Stop Dose Admin Acetaminophen 650 mg 07/30/19 18:58 Tylenol PO Q4H PRN Pain MILD(1-3)/Fever >100.5/WILLIS Adenosine 12 mg 08/04/19 11:28 08/04/19 11:42 Adenocard IV 08/04/19 23:00 12 mg ONCE PRN Administration SEE INSTRUCTIONS Arformoterol Tartrate 15 mcg 08/02/19 11:15 08/04/19 10:04 Debbie Nebu IH 15 mcg Q12HRT SHANE Administration Atorvastatin Calcium 20 mg 08/01/19 22:00 08/03/19 21:42 Lipitor PO 20 mg HS SHANE Administration Budesonide 0.5 mg 08/02/19 11:15 08/04/19 10:03 Pulmicort IH 0.5 mg Q12HRT SHANE Administration Famotidine 20 mg 07/30/19 22:00 08/04/19 09:12 Pepcid PO 20 mg BID SHANE Administration Furosemide 40 mg 07/31/19 18:00 08/04/19 06:23 Lasix IV 40 mg 0600,1800 SHANE Administration Hydromorphone HCl 1 mg 07/30/19 18:58 07/31/19 21:40 Dilaudid IV 1 mg Q3H PRN Administration Pain , Severe (7-10) Diltiazem HCl 100 mg in 100 mls @ 5 mls/hr 08/04/19 13:00 08/04/19 14:12 Cardizem/D5w 100mg/100ml IV 5 mg/hr TITR SHANE 5 mls/hr Administration 5 MG/HR Lisinopril 20 mg 08/01/19 10:00 08/04/19 09:13 Zestril PO 20 mg DAILY SHANE Administration Methylprednisolone Sodium Succinate 60 mg 08/02/19 12:00 08/04/19 13:17 Solu-Medrol IV 60 mg Q6HR SHANE Administration Metoclopramide HCl 10 mg 07/30/19 18:58 Reglan IV Q6H PRN Nausea And Vomiting Metoprolol Tartrate 5 mg 08/04/19 12:10 08/04/19 13:55 Metoprolol IV 5 mg Q4HR PRN Administration HR >120 Ondansetron HCl 4 mg 07/30/19 18:58 Zofran IV Q8H PRN Nausea And Vomiting Oxycodone/Acetaminophen 1 tab 07/30/19 18:58 08/03/19 05:30 Percocet 5/325 PO 1 tab Q6H PRN Administration Pain, Moderate (4-6) Sodium Chloride 10 ml 07/30/19 22:00 08/04/19 09:12 Sodium Chloride Flush Syringe 10 Ml IV 10 ml BID SHANE Administration Sodium Chloride 10 ml 07/30/19 18:58 08/04/19 06:23 Sodium Chloride Flush Syringe 10 Ml IV 10 ml PRN PRN Administration LINE FLUSH
[2019-08-04] MEDS ORDERED: AMIODARONE 300 MG in DEXTROSE 5% IN WATER 100 ML IV ONE (16:30)
[2019-08-04] MEDS ORDERED: LORazepam 2 MG/ML VIAL IV ONE (16:45)
[2019-08-04] MEDS: HEPARIN 5,000 UNIT/1 ML VIAL SUB-Q SCH (21:26)
[2019-08-04] MEDS: AMIODARONE 200 MG TAB PO SCH (21:27)
[2019-08-04] MEDS: diphenhydrAMINE 50 MG/ML VIAL IV PRN (21:28)
[2019-08-05] MEDS: methylPREDNISolone Sod Succinate 125 MG/2 ML INJ IV SCH ×4 (00:37→18:10)
[2019-08-05] MEDS: diphenhydrAMINE 50 MG/ML VIAL IV PRN ×2 (03:25→10:30)
[2019-08-05] MEDS: dilTIAZem/D5W 100 MG/100 ML BAG IV SCH (03:51)
[2019-08-05] MEDS: FUROSEMIDE 40 MG/4 ML INJ IV SCH ×2 (05:22→18:11)
[2019-08-05 06:08] LABS: Mean Corpuscular HGB Conc 30 % (32-34); Mean Corpuscular Volume 78 fl (84-94); Platelet Count 314 K/mm3 (140-440); Red Blood Count 5.79 M/mm3 (3.65-5.03); Red Cell Distribution Width 19.2 % (13.2-15.2)
[2019-08-05 06:39] LABS: Alanine Aminotransferase 24 units/L (7-56); Albumin 3.9 g/dL (3.9-5); BUN/Creatinine Ratio 35; Blood Urea Nitrogen 39 mg/dL (9-20); Calcium 9.1 mg/dL (8.4-10.2); Hemolysis Index 3
[2019-08-05 06:51] LABS: Hematocrit 44.9 % (35.5-45.6); Hemoglobin 13.4 gm/dl (11.8-15.2)
[2019-08-05] MEDS: FAMOTIDINE 20 MG TAB PO SCH ×2 (09:25→21:32)
[2019-08-05] MEDS: LISINOPRIL 20 MG TAB PO SCH (09:25)
[2019-08-05] MEDS: AMIODARONE 200 MG TAB PO SCH (09:25)
[2019-08-05] MEDS: HEPARIN 5,000 UNIT/1 ML VIAL SUB-Q SCH ×2 (09:26→21:32)
--- NOTE | 2019-08-05 11:01 | Progress Note ---
Assessment and Plan Paroxysmal Afib/SVT s/p adenosine 6 and 12 mg spontaneously reverted to sinus rhythm overnight on amiodarone and diltiazem Chronic diastolic heart failure patient follows with Dr Yaw Thomson at [facility] Chronic respiratory failure Chronic lower extremity edema Hx of COPD An echo this admission reports normal LVEF 50-55%. An echo done 08/2018 revealed normal LVEF. A dobutamine stress echo performed 08/2018 showed no inducible ischemia. A cardiac PET scan done at [place] in 2016 revealed normal perfusion scan. We will transition to oral diltiazem. Continue medical therapy for suppression of paroxysmal atrial fibrillation. Subjective Date of service: 08/05/19 Interval history: Patient alert with periods of confusion. He is in restraints and has a sitter at the bedside. Remains on high flow oxygen. He has no complaints. Patient has reverted to sinus rhythm on telemetry monitoring. Objective Vital Signs Temp Pulse Pulse Pulse Resp Resp BP 08/05/19 09:25 78 142/80 08/05/19 08:35 89 18 08/05/19 08:00 92 H 08/05/19 07:27 98.7 F 78 20 142/80 08/05/19 03:59 98.6 F 90 22 148/88 08/05/19 02:00 08/05/19 00:03 99.3 F 96 H 19 139/85 08/05/19 00:00 110 H 08/04/19 23:08 90 20 08/04/19 20:43 97 H 18 08/04/19 20:00 94 H 22 08/04/19 19:31 98.2 F 20 137/107 08/04/19 16:07 98.6 F 112 H 20 108/64 08/04/19 16:00 117 H 08/04/19 15:00 81 14 08/04/19 14:12 164 H 101/67 08/04/19 13:55 153 H 98/63 08/04/19 12:55 145 H 122/75 08/04/19 12:00 156 H 08/04/19 11:54 98.4 F 155 H 20 124/84 08/04/19 11:47 157 H 08/04/19 11:31 153 H 114/81 08/04/19 11:18 98.6 F 156 H 20 115/81 Pulse Ox 08/05/19 09:25 08/05/19 08:35 96 08/05/19 08:00 08/05/19 07:27 94 08/05/19 03:59 91 08/05/19 02:00 94 08/05/19 00:03 82 L 08/05/19 00:00 08/04/19 23:08 96 08/04/19 20:43 08/04/19 20:00 95 08/04/19 19:31 08/04/19 16:07 90 08/04/19 16:00 08/04/19 15:00 94 08/04/19 14:12 08/04/19 13:55 08/04/19 12:55 08/04/19 12:00 08/04/19 11:54 83 L 08/04/19 11:47 81 L 08/04/19 11:31 86 08/04/19 11:18 86 - Physical Examination General: No Apparent Distress HEENT: Positive: PERRL Neck: Positive: trachea midline Cardiac: Positive: Reg Rate and Rhythm Lungs: Positive: Decreased Breath Sounds Neuro: Positive: Grossly Intact Abdomen: Positive: Active Bowel Sounds Extremities: Absent: edema - Labs and Meds Cardiac Enzymes 08/05/19 Range/Units 05:03 AST 40 (5-40) units/L CBC 08/05/19 Range/Units 05:03 WBC 6.6 (4.5-11.0) K/mm3 RBC 5.79 H (3.65-5.03) M/mm3 Hgb 13.4 (11.8-15.2) gm/dl Hct 44.9 (35.5-45.6) % Plt Count 314 (140-440) K/mm3 Comprehensive Metabolic Panel 08/05/19 Range/Units 05:03 Sodium 148 H (137-145) mmol/L Potassium 3.6 D (3.6-5.0) mmol/L Chloride 96.3 L (98-107) mmol/L Carbon Dioxide 37 H (22-30) mmol/L BUN 39 H (9-20) mg/dL Creatinine 1.1 (0.8-1.5) mg/dL Glucose 120 H (75-100) mg/dL Calcium 9.1 (8.4-10.2) mg/dL AST 40 (5-40) units/L ALT 24 (7-56) units/L Alkaline Phosphatase 78 (35-129) units/L Total Protein 7.4 (6.3-8.2) g/dL Albumin 3.9 (3.9-5) g/dL
[2019-08-05] MEDS: ARFORMOTEROL 15 MCG/2 ML NEBU IH SCH ×2 (11:26→19:31)
[2019-08-05] MEDS: BUDESONIDE 0.5 MG/2 ML NEBU IH SCH ×2 (11:26→19:31)
--- NOTE | 2019-08-05 11:49 | Progress Note ---
Assessment and Plan Assessment and plan: Patient is a 68 yo man with a history of hypertension, prior tobacco dependency, dyslipidemia, OA with a cane and chronic hypoxic respiratory failure on 2 liters of home O2 due to COPD who presents to [facility] ED with SOB, leg edema. Pulse Ox documented in ED was 70%. His o2 was increased to 5 liters nasal canula. 2 view CXR shows pulmonary vascular congestion without overt edema, enlarged cardiac silhouette. The day after admission, patient acutely decompensated after ECHO done. I resumed IV lasix as he was given a dose of IV lasix x 1 in ED but none was ordered thereafter. ABGs done, 7.149 /124.7/55.1/42.4; therefore, bipap started, more lasix ordered, Director Of Adult Epilepsy and Cardiology consulted, moved to [facility] on 07/31/2019. Repeat ABGs on bipap 50% 7.361/75.4/71.9/41.8. Transfer to telemetry on Sunday. * TTE Conclusions: Global LVSF is at the lower limits of normal, estimated EF is 50-55%, trace MR, right heart chambers are both dilated, trace TR, study quality is technically difficult. * 2 view CXR shows pulmonary vascular congestion without overt edema, enlarged cardiac silhouette. Acute on chronic hypoxic and hypercapnic respiratory failure due to p. edema and COPD exacerbation: treat with iv lasix, has been weaned off high flow oxygen Acute onset of diastolic heart failure: treat with IV lasix, cardiology input appreciated Anasarca/ascites: treat with diurectics COPD exacerbation; continue steroids nebs, pulmonary input appreciated DVT ppx sq heparin full code Acute metabolic encephalopathy; was most likely due to hypoxia and hypercapnia. Now resolved, have asked nurse to keep off restraints. History Interval history: Review of systems Constitutional: No fevers, no malaise, no joint pains CVS: No chest pain, no orthopnea, no pedal edema GI: No abdominal pain, no diarrhea, no vomiting, no constipation Respiratory: , Shortness of breath and orthopnea improving. Hospitalist Physical - Physical exam Narrative exam: General.: Appears well, no distress, nontoxic, obese HEENT: Moist mucous membranes, extraocular muscles intact, no lymphadenopathy Neck: supple Cardiac: S1-S2 heard Lungs:decreased air entry, wheezing and crackles. Abdomen: soft , nontender, nondistended, bowel sounds positive Extremities: no edema clubbing or cyanosis Skin: no rash or lesions Neurologic: no gross focal deficits Psych: calm, and cooperative - Constitutional Vitals: Temp Pulse Resp BP Pulse Ox 98.7 F 78 18 142/80 96 08/05/19 07:27 08/05/19 09:25 08/05/19 08:35 08/05/19 09:25 08/05/19 08:35 General appearance: Present: no acute distress Results - Labs CBC & Chem 7: 08/05/19 05:03 08/05/19 05:03 Labs: Laboratory Last Values WBC 6.6 K/mm3 (4.5-11.0) 08/05/19 05:03 RBC 5.79 M/mm3 (3.65-5.03) H 08/05/19 05:03 Hgb 13.4 gm/dl (11.8-15.2) 08/05/19 05:03 Hct 44.9 % (35.5-45.6) 08/05/19 05:03 MCV 78 fl (84-94) L 08/05/19 05:03 MCH 23 pg (28-32) L 08/05/19 05:03 MCHC 30 % (32-34) L 08/05/19 05:03 RDW 19.2 % (13.2-15.2) H 08/05/19 05:03 Plt Count 314 K/mm3 (140-440) 08/05/19 05:03 Lymph % (Auto) 20.2 % (13.4-35.0) 07/31/19 04:37 [place] % (Auto) 12.0 % (0.0-7.3) H 07/31/19 04:37 Eos % (Auto) 7.2 % (0.0-4.3) H 07/31/19 04:37 Baso % (Auto) 1.0 % (0.0-1.8) 07/31/19 04:37 Lymph # 1.4 K/mm3 (1.2-5.4) 07/31/19 04:37 [place] # 0.8 K/mm3 (0.0-0.8) 07/31/19 04:37 Eos # 0.5 K/mm3 (0.0-0.4) H 07/31/19 04:37 Baso # 0.1 K/mm3 (0.0-0.1) 07/31/19 04:37 Seg Neutrophils % 59.6 % (40.0-70.0) 07/31/19 04:37 Seg Neutrophils # 4.2 K/mm3 (1.8-7.7) 07/31/19 04:37 ABG pH 7.361 pH Units (7.350-7.450) 08/01/19 00:25 ABG pCO2 75.4 mm Hg 08/01/19 00:25 ABG pO2 71.9 mm Hg (80.0-90.0) L 08/01/19 00:25 ABG HCO3 41.8 mmol/L (20.0-26.0) H 08/01/19 00:25 ABG O2 Saturation 95.2 % (95.0-99.0) 08/01/19 00:25 ABG O2 Content 15.4 (0.0-44) 08/01/19 00:25 ABG Base Excess 13.4 mmol/L (-2.0-3.0) H 08/01/19 00:25 ABG Hemoglobin 11.8 gm/dl (14.0-18.0) L 08/01/19 00:25 ABG Carboxyhemoglobin 2.2 % (0.0-5.0) 08/01/19 00:25 ABG Methemoglobin 0.5 % (0.0-1.5) 08/01/19 00:25 Oxyhemoglobin 92.6 % (95.0-99.0) L 08/01/19 00:25 FiO2 50 % 08/01/19 00:25 Sodium 148 mmol/L (137-145) H 08/05/19 05:03 Potassium 3.6 mmol/L (3.6-5.0) D 08/05/19 05:03 Chloride 96.3 mmol/L (98-107) L 08/05/19 05:03 Carbon Dioxide 37 mmol/L (22-30) H 08/05/19 05:03 Anion Gap 18 mmol/L 08/05/19 05:03 BUN 39 mg/dL (9-20) H 08/05/19 05:03 Creatinine 1.1 mg/dL (0.8-1.5) 08/05/19 05:03 Estimated GFR > 60 ml/min 08/05/19 05:03 BUN/Creatinine Ratio 35 % 08/05/19 05:03 Glucose 120 mg/dL (75-100) H 08/05/19 05:03 POC Glucose 117 (70-105) H 08/04/19 11:24 Hemoglobin A1c 7.2 % (4-6) H 07/30/19 19:13 Calcium 9.1 mg/dL (8.4-10.2) 08/05/19 05:03 Magnesium 2.60 mg/dL (1.7-2.3) H 08/05/19 05:03 Total Bilirubin 0.70 mg/dL (0.1-1.2) 08/05/19 05:03 AST 40 units/L (5-40) 08/05/19 05:03 ALT 24 units/L (7-56) 08/05/19 05:03 Alkaline Phosphatase 78 units/L (35-129) 08/05/19 05:03 Troponin T < 0.010 ng/mL (0.00-0.029) 07/30/19 12:30 NT-Pro-B Natriuret Pep 4074 pg/mL (0-900) H 07/30/19 12:30 Total Protein 7.4 g/dL (6.3-8.2) 08/05/19 05:03 Albumin 3.9 g/dL (3.9-5) 08/05/19 05:03 Albumin/Globulin Ratio 1.1 % 08/05/19 05:03 Active Medications - Current Medications Current Medications: Generic Name Dose Route Start Last Admin Trade Name Freq PRN Reason Stop Dose Admin Acetaminophen 650 mg 07/30/19 18:58 Tylenol PO Q4H PRN Pain MILD(1-3)/Fever >100.5/WILLIS Amiodarone HCl 200 mg 08/06/19 10:00 Cordarone PO QDAY SHANE Arformoterol Tartrate 15 mcg 08/02/19 11:15 08/05/19 11:26 Brovana Nebu IH Not Given Q12HRT SHANE Atorvastatin Calcium 20 mg 08/01/19 22:00 08/04/19 21:26 Lipitor PO 20 mg HS SHANE Administration Budesonide 0.5 mg 08/02/19 11:15 08/05/19 11:26 Pulmicort IH Not Given Q12HRT [facility] Diltiazem HCl 60 mg 08/05/19 12:00 Cardizem PO Q6HR [facility] Diphenhydramine HCl 25 mg 08/04/19 20:59 08/05/19 10:30 Benadryl IV 25 mg Q6H PRN Administration Itching Famotidine 20 mg 07/30/19 22:00 08/05/19 09:25 Pepcid PO 20 mg BID [facility] Administration Furosemide 40 mg 07/31/19 18:00 08/05/19 05:22 Lasix IV 40 mg 0600,1800 [facility] Administration Heparin Sodium (Porcine) 5,000 unit 08/04/19 22:00 08/05/19 09:26 Heparin SUB-Q 5,000 unit Q12HR SHANE Administration Hydromorphone HCl 1 mg 07/30/19 18:58 07/31/19 21:40 Dilaudid IV 1 mg Q3H PRN Administration Pain , Severe (7-10) Lisinopril 20 mg 08/01/19 10:00 08/05/19 09:25 Zestril PO 20 mg DAILY [facility] Administration Methylprednisolone Sodium Succinate 60 mg 08/02/19 12:00 08/05/19 05:22 Solu-Medrol IV 60 mg Q6HR SHANE Administration Metoclopramide HCl 10 mg 07/30/19 18:58 Reglan IV Q6H PRN Nausea And Vomiting Metoprolol Tartrate 5 mg 08/04/19 12:10 08/04/19 13:55 Metoprolol IV 5 mg Q4HR PRN Administration HR >120 Ondansetron HCl 4 mg 07/30/19 18:58 Zofran IV Q8H PRN Nausea And Vomiting Oxycodone/Acetaminophen 1 tab 07/30/19 18:58 08/03/19 05:30 Percocet 5/325 PO 1 tab Q6H PRN Administration Pain, Moderate (4-6) Sodium Chloride 10 ml 07/30/19 22:00 08/05/19 09:26 Sodium Chloride Flush Syringe 10 Ml IV 10 ml BID SHANE Administration Sodium Chloride 10 ml 07/30/19 18:58 08/04/19 06:23 Sodium Chloride Flush Syringe 10 Ml IV 10 ml PRN PRN Administration LINE FLUSH
--- NOTE | 2019-08-05 12:20 | Progress Note ---
Assessment and Plan 68 y/o with known COPD and chronic respiratory failure, admitted with acute on chronic respiratory failure. 1. Continue BID pulmicort and brovana 2. Continue IV steroids at q6 hour intervals, not ready to wean yet as still on HFNC. 3. Agree with diuresis, now on BID lasix 4. Wean FiO2 for sats >88% 5. Repeat CXR today as sats are not improving. I suspect that this is from him not wearing the oxygen therapy as he should be need to make sure CXR is not worsening. Subjective Date of service: 08/05/19 Interval history: Remains on HFNC Objective Vital Signs - 12hr 08/05/19 08/05/19 08/05/19 02:00 03:59 07:27 Temperature 98.6 F 98.7 F Pulse Rate 90 78 Pulse Rate [ Anterior Bilateral Throughout] Respiratory 22 20 Rate Respiratory Rate [Anterior Bilateral Throughout] Blood Pressure 148/88 142/80 O2 Sat by Pulse 94 91 94 Oximetry 08/05/19 08/05/19 08/05/19 08:00 08:35 09:25 Temperature Pulse Rate 92 H 78 Pulse Rate [ 89 Anterior Bilateral Throughout] Respiratory Rate Respiratory 18 Rate [Anterior Bilateral Throughout] Blood Pressure 142/80 O2 Sat by Pulse 96 Oximetry CBC and BMP: 08/05/19 05:03 08/05/19 05:03 ABG, PT/INR, D-dimer: ABG ABG pH 7.361 pH Units (7.350-7.450) 08/01/19 00:25 ABG pCO2 75.4 mm Hg 08/01/19 00:25 ABG pO2 71.9 mm Hg (80.0-90.0) L 08/01/19 00:25 ABG O2 Saturation 95.2 % (95.0-99.0) 08/01/19 00:25 Abnormal lab findings: Abnormal Labs 07/30/19 07/30/19 07/30/19 12:30 12:30 12:30 WBC RBC 5.22 H Hgb MCV 79 L MCH 23 L MCHC 30 L RDW 18.8 H [place] % (Auto) 9.8 H Eos % (Auto) 6.6 H Lymph # 1.0 L Eos # 0.5 H ABG pH ABG pO2 ABG HCO3 ABG O2 Saturation ABG Base Excess ABG Hemoglobin Oxyhemoglobin Sodium Potassium Chloride Carbon Dioxide 31 H BUN 8 L Glucose POC Glucose Hemoglobin A1c Magnesium NT-Pro-B Natriuret Pep 4074 H Albumin 3.8 L 07/30/19 07/31/19 07/31/19 19:13 04:37 04:37 WBC RBC 5.16 H Hgb MCV 80 L MCH 23 L MCHC 29 L RDW 18.8 H [place] % (Auto) 12.0 H Eos % (Auto) 7.2 H Lymph # Eos # 0.5 H ABG pH ABG pO2 ABG HCO3 ABG O2 Saturation ABG Base Excess ABG Hemoglobin Oxyhemoglobin Sodium 147 H Potassium Chloride Carbon Dioxide 38 H D BUN Glucose POC Glucose Hemoglobin A1c 7.2 H Magnesium NT-Pro-B Natriuret Pep Albumin 3.8 L 07/31/19 08/01/19 08/01/19 16:50 00:25 07:54 WBC RBC Hgb MCV MCH MCHC RDW [place] % (Auto) Eos % (Auto) Lymph # Eos # ABG pH 7.149 L* ABG pO2 55.1 L 71.9 L ABG HCO3 42.4 H 41.8 H ABG O2 Saturation 81.6 L ABG Base Excess 9.3 H 13.4 H ABG Hemoglobin 12.3 L 11.8 L Oxyhemoglobin 79.4 L 92.6 L Sodium 146 H Potassium Chloride 97.7 L Carbon Dioxide 36 H BUN Glucose POC Glucose Hemoglobin A1c Magnesium NT-Pro-B Natriuret Pep Albumin 08/02/19 08/02/19 08/03/19 03:39 03:39 05:25 WBC 3.4 L RBC 5.53 H Hgb 11.7 L MCV 78 L 78 L MCH 24 L 24 L MCHC 30 L 30 L RDW 18.7 H 18.8 H [place] % (Auto) Eos % (Auto) Lymph # Eos # ABG pH ABG pO2 ABG HCO3 ABG O2 Saturation ABG Base Excess ABG Hemoglobin Oxyhemoglobin Sodium Potassium Chloride 93.1 L Carbon Dioxide 39 H BUN Glucose 71 L POC Glucose Hemoglobin A1c Magnesium NT-Pro-B Natriuret Pep Albumin 08/03/19 08/04/19 08/04/19 05:25 08:09 11:24 WBC RBC Hgb MCV MCH MCHC RDW [place] % (Auto) Eos % (Auto) Lymph # Eos # ABG pH ABG pO2 ABG HCO3 ABG O2 Saturation ABG Base Excess ABG Hemoglobin Oxyhemoglobin Sodium Potassium 5.4 H D Chloride 90.7 L Carbon Dioxide 41 H* BUN Glucose 140 H POC Glucose 139 H 117 H Hemoglobin A1c Magnesium NT-Pro-B Natriuret Pep Albumin 08/05/19 08/05/19 05:03 05:03 WBC RBC 5.79 H Hgb MCV 78 L MCH 23 L MCHC 30 L RDW 19.2 H [place] % (Auto) Eos % (Auto) Lymph # Eos # ABG pH ABG pO2 ABG HCO3 ABG O2 Saturation ABG Base Excess ABG Hemoglobin Oxyhemoglobin Sodium 148 H Potassium Chloride 96.3 L Carbon Dioxide 37 H BUN 39 H Glucose 120 H POC Glucose Hemoglobin A1c Magnesium 2.60 H NT-Pro-B Natriuret Pep Albumin
[2019-08-05] MEDS: dilTIAZem 60 MG TAB PO SCH ×2 (14:14→18:10)
[2019-08-06] MEDS: methylPREDNISolone Sod Succinate 125 MG/2 ML INJ IV SCH ×3 (00:47→12:46)
[2019-08-06] MEDS: dilTIAZem 60 MG TAB PO SCH ×3 (00:48→12:47)
[2019-08-06] MEDS: FUROSEMIDE 40 MG/4 ML INJ IV SCH (05:52)
[2019-08-06] MEDS: BUDESONIDE 0.5 MG/2 ML NEBU IH SCH (07:32)
[2019-08-06] MEDS: ARFORMOTEROL 15 MCG/2 ML NEBU IH SCH (07:32)
[2019-08-06] MEDS: LISINOPRIL 20 MG TAB PO SCH (09:58)
[2019-08-06] MEDS: FAMOTIDINE 20 MG TAB PO SCH (09:58)
[2019-08-06] MEDS: HEPARIN 5,000 UNIT/1 ML VIAL SUB-Q SCH (09:59)
[2019-08-06] MEDS ORDERED: AMIODARONE 200 MG TAB PO SCH (10:00)
--- NOTE | 2019-08-06 10:26 | Progress Note ---
Hospitalist Physical - Constitutional Vitals: Temp Pulse Resp BP Pulse Ox 98.3 F 78 22 135/80 94 08/06/19 03:45 08/06/19 09:58 08/06/19 07:56 08/06/19 09:58 08/06/19 07:32 General appearance: Present: no acute distress Results - Labs CBC & Chem 7: 08/05/19 05:03 08/05/19 05:03 Labs: Laboratory Last Values WBC 6.6 K/mm3 (4.5-11.0) 08/05/19 05:03 RBC 5.79 M/mm3 (3.65-5.03) H 08/05/19 05:03 Hgb 13.4 gm/dl (11.8-15.2) 08/05/19 05:03 Hct 44.9 % (35.5-45.6) 08/05/19 05:03 MCV 78 fl (84-94) L 08/05/19 05:03 MCH 23 pg (28-32) L 08/05/19 05:03 MCHC 30 % (32-34) L 08/05/19 05:03 RDW 19.2 % (13.2-15.2) H 08/05/19 05:03 Plt Count 314 K/mm3 (140-440) 08/05/19 05:03 Lymph % (Auto) 20.2 % (13.4-35.0) 07/31/19 04:37 [place] % (Auto) 12.0 % (0.0-7.3) H 07/31/19 04:37 Eos % (Auto) 7.2 % (0.0-4.3) H 07/31/19 04:37 Baso % (Auto) 1.0 % (0.0-1.8) 07/31/19 04:37 Lymph # 1.4 K/mm3 (1.2-5.4) 07/31/19 04:37 [place] # 0.8 K/mm3 (0.0-0.8) 07/31/19 04:37 Eos # 0.5 K/mm3 (0.0-0.4) H 07/31/19 04:37 Baso # 0.1 K/mm3 (0.0-0.1) 07/31/19 04:37 Seg Neutrophils % 59.6 % (40.0-70.0) 07/31/19 04:37 Seg Neutrophils # 4.2 K/mm3 (1.8-7.7) 07/31/19 04:37 ABG pH 7.361 pH Units (7.350-7.450) 08/01/19 00:25 ABG pCO2 75.4 mm Hg 08/01/19 00:25 ABG pO2 71.9 mm Hg (80.0-90.0) L 08/01/19 00:25 ABG HCO3 41.8 mmol/L (20.0-26.0) H 08/01/19 00:25 ABG O2 Saturation 95.2 % (95.0-99.0) 08/01/19 00:25 ABG O2 Content 15.4 (0.0-44) 08/01/19 00:25 ABG Base Excess 13.4 mmol/L (-2.0-3.0) H 08/01/19 00:25 ABG Hemoglobin 11.8 gm/dl (14.0-18.0) L 08/01/19 00:25 ABG Carboxyhemoglobin 2.2 % (0.0-5.0) 08/01/19 00:25 ABG Methemoglobin 0.5 % (0.0-1.5) 08/01/19 00:25 Oxyhemoglobin 92.6 % (95.0-99.0) L 08/01/19 00:25 FiO2 50 % 08/01/19 00:25 Sodium 148 mmol/L (137-145) H 08/05/19 05:03 Potassium 3.6 mmol/L (3.6-5.0) D 08/05/19 05:03 Chloride 96.3 mmol/L (98-107) L 08/05/19 05:03 Carbon Dioxide 37 mmol/L (22-30) H 08/05/19 05:03 Anion Gap 18 mmol/L 08/05/19 05:03 BUN 39 mg/dL (9-20) H 08/05/19 05:03 Creatinine 1.1 mg/dL (0.8-1.5) 08/05/19 05:03 Estimated GFR > 60 ml/min 08/05/19 05:03 BUN/Creatinine Ratio 35 % 08/05/19 05:03 Glucose 120 mg/dL (75-100) H 08/05/19 05:03 POC Glucose 117 (70-105) H 08/04/19 11:24 Hemoglobin A1c 7.2 % (4-6) H 07/30/19 19:13 Calcium 9.1 mg/dL (8.4-10.2) 08/05/19 05:03 Magnesium 2.60 mg/dL (1.7-2.3) H 08/05/19 05:03 Total Bilirubin 0.70 mg/dL (0.1-1.2) 08/05/19 05:03 AST 40 units/L (5-40) 08/05/19 05:03 ALT 24 units/L (7-56) 08/05/19 05:03 Alkaline Phosphatase 78 units/L (35-129) 08/05/19 05:03 Troponin T < 0.010 ng/mL (0.00-0.029) 07/30/19 12:30 NT-Pro-B Natriuret Pep 4074 pg/mL (0-900) H 07/30/19 12:30 Total Protein 7.4 g/dL (6.3-8.2) 08/05/19 05:03 Albumin 3.9 g/dL (3.9-5) 08/05/19 05:03 Albumin/Globulin Ratio 1.1 % 08/05/19 05:03 Active Medications - Current Medications Current Medications: Generic Name Dose Route Start Last Admin Trade Name Freq PRN Reason Stop Dose Admin Acetaminophen 650 mg 07/30/19 18:58 Tylenol PO Q4H PRN Pain MILD(1-3)/Fever >100.5/WILLIS Amiodarone HCl 200 mg 08/06/19 10:00 08/06/19 09:58 Cordarone PO 200 mg QDAY SHANE Administration Arformoterol Tartrate 15 mcg 08/02/19 11:15 08/06/19 07:32 Brovana Nebu IH 15 mcg Q12HRT SHANE Administration Atorvastatin Calcium 20 mg 08/01/19 22:00 08/05/19 21:31 Lipitor PO 20 mg HS SHANE Administration Budesonide 0.5 mg 08/02/19 11:15 08/06/19 07:32 Pulmicort IH 0.5 mg Q12HRT SHANE Administration Diltiazem HCl 60 mg 08/05/19 12:00 08/06/19 05:52 Cardizem PO 60 mg Q6HR SHANE Administration Diphenhydramine HCl 25 mg 08/04/19 20:59 08/05/19 10:30 Benadryl IV 25 mg Q6H PRN Administration Itching Famotidine 20 mg 07/30/19 22:00 08/06/19 09:58 Pepcid PO 20 mg BID SHANE Administration Furosemide 40 mg 07/31/19 18:00 08/06/19 05:52 Lasix IV 40 mg 0600,1800 SHANE Administration Heparin Sodium (Porcine) 5,000 unit 08/04/19 22:00 08/06/19 09:59 Heparin SUB-Q 5,000 unit Q12HR SHANE Administration Hydromorphone HCl 1 mg 07/30/19 18:58 07/31/19 21:40 Dilaudid IV 1 mg Q3H PRN Administration Pain , Severe (7-10) Lisinopril 20 mg 08/01/19 10:00 08/06/19 09:58 Zestril PO 20 mg DAILY SHANE Administration Methylprednisolone Sodium Succinate 60 mg 08/02/19 12:00 08/06/19 05:51 Solu-Medrol IV 60 mg Q6HR SHANE Administration Metoclopramide HCl 10 mg 07/30/19 18:58 Reglan IV Q6H PRN Nausea And Vomiting Metoprolol Tartrate 5 mg 08/04/19 12:10 08/04/19 13:55 Metoprolol IV 5 mg Q4HR PRN Administration HR >120 Ondansetron HCl 4 mg 07/30/19 18:58 Zofran IV Q8H PRN Nausea And Vomiting Oxycodone/Acetaminophen 1 tab 07/30/19 18:58 08/03/19 05:30 Percocet 5/325 PO 1 tab Q6H PRN Administration Pain, Moderate (4-6) Sodium Chloride 10 ml 07/30/19 22:00 08/06/19 09:59 Sodium Chloride Flush Syringe 10 Ml IV 10 ml BID SHANE Administration Sodium Chloride 10 ml 07/30/19 18:58 08/04/19 06:23 Sodium Chloride Flush Syringe 10 Ml IV 10 ml PRN PRN Administration LINE FLUSH
--- NOTE | 2019-08-06 10:32 | Discharge Summary ---
Providers - Providers Date of Admission: 07/31/19 11:30 Attending physician: MONTEZ BRIONES MD 07/31/19 17:47 Consult to Physician [CONS] Routine Comment: Consulting Provider: DL MCKEON Physician Instructions: Reason For Exam: severe CHF 07/31/19 17:48 Consult to Physician [CONS] Routine Comment: Consulting Provider: JOHN DUGAN Physician Instructions: Reason For Exam: respiratory failure, respiratory acidosis 08/04/19 16:26 Occupational Therapy Evaluate and Treat [CONS] Routine Comment: Reason For Exam: ADLs evaluation Physical Therapy Evaluation and Treat [CONS] Routine Comment: Reason For Exam: gait evaluation/ambulatory dysfunction Primary care physician: TATIANA MEYER MD Hospitalization Condition: Fair Hospital course: 68 yo man with a history of hypertension, prior tobacco dependency, dyslipidemia, OA with a cane and chronic hypoxic respiratory failure on 2 liters of home O2 due to COPD who presents to [facility] ED with SOB, leg edema. Pulse Ox documented in ED was 70%. His o2 was increased to 5 liters nasal canula. 2 view CXR shows pulmonary vascular congestion without overt edema, enlarged cardiac silhouette. The day after admission, patient acutely decompensated after ECHO done. I resumed IV lasix as he was given a dose of IV lasix x 1 in ED but none was ordered thereafter. ABGs done, 7.149/124.7/55.1/42.4; therefore, bipap started, more lasix ordered, [employer]ist and Cardiology consulted, moved to [facility] on 07/31/2019. Repeat ABGs on bipap 50% 7.361/75.4/71.9/41.8. Transfer to telemetry on Sunday. * TTE Conclusions: Global LVSF is at the lower limits of normal, estimated EF is 50-55%, trace MR, right heart chambers are both dilated, trace TR, study quality is technically difficult. * 2 view CXR shows pulmonary vascular congestion without overt edema, enlarged cardiac silhouette. Acute on chronic hypoxic and hypercapnic respiratory failure due to p. edema and COPD exacerbation: Continue supplemental oxygen, patient already has oxygen at home. Acute on chronic diastolic heart failure: treat with IV lasix, cardiology input appreciated Anasarca/ascites: treat with diurectics COPD exacerbation; continue steroids nebs, pulmonary input appreciated DVT ppx sq heparin Paroxysmal atrial fibrillation with RVR and hypercoagulable state. Rate control medications were adjusted per cardiology. full code Acute metabolic encephalopathy; was most likely due to hypoxia and hypercapnia. Now resolved, Preventative health counseling performed for 17 minutes Disposition: [id number] HOME UNDER [facility] Time spent for discharge: 35 minutes Core Measure Documentation - Palliative Care Palliative Care/ Comfort Measures: Not Applicable - Core Measures Any of the following diagnoses?: heart failure - Heart Failure Discharge Requirements RENE/ARB for LVSD if EF <40%: Not Applicable Beta luis at discharge: Yes Exam - Constitutional Vitals: Temp Pulse Resp BP Pulse Ox 98.3 F 78 22 135/80 94 08/06/19 03:45 08/06/19 09:58 08/06/19 07:56 08/06/19 09:58 08/06/19 07:32 General appearance: Present: no acute distress, well-nourished - EENT Eyes: Present: PERRL ENT: hearing intact, clear oral mucosa - Neck Neck: Present: supple, normal ROM - Respiratory Respiratory effort: normal Respiratory: bilateral: CTA - Cardiovascular Heart Sounds: Present: S1 & S2. Absent: rub, click - Extremities Extremities: pulses symmetrical, No edema Peripheral Pulses: within normal limits - Abdominal General gastrointestinal: Present: soft, non-tender, non-distended, normal bowel sounds Male genitourinary: Present: normal - Integumentary Integumentary: Present: clear, warm, dry - Musculoskeletal Musculoskeletal: gait normal, strength equal bilaterally - Psychiatric Psychiatric: appropriate mood/affect, intact judgment & insight - Neurologic Neurologic: CNII-XII intact, moves all extremities Plan Follow up with: TATIANA MEYER MD [Primary Care Provider] - 7 Days Prescriptions: Ipratropium/Albuterol Sulfate [Combivent Respimat] 2 puff INHALATION PRN #1 Amiodarone [Cordarone 200 MG TAB] 200 mg PO QDAY #30 tablet predniSONE [Deltasone] 10 mg PO .TAPER #48 tab dilTIAZem HCl [Diltiazem 24Hr ER (Cd)] 240 mg PO DAILY #30 cap.er.24h Furosemide [Lasix TAB] 40 mg PO BID #60 tablet oxyCODONE /ACETAMINOPHEN [Percocet 5/325 mg] 1 tab PO Q6H PRN #14 tablet PRN Reason: Pain, Moderate (4-6) Tiotropium [place] [Spiriva Respimat] 1 puff IH DAILY #1 mist.inhal Budesonide/Formoterol Fumarate [Symbicort 160-4.5 Mcg Inhaler] 1 puff IH BID #1 hfa.aer.ad
--- NOTE | 2019-08-06 11:10 | Progress Note ---
Assessment and Plan 68 y/o with known COPD and chronic respiratory failure, admitted with acute on chronic respiratory failure. 1. No objection to discharge now that off of HFNC. 2. Please send out on the following steroid taper: Prednisone 60 daily for 4 days, 40 daily for 4 days, 20 daily for 4 days, 10 daily for 4 days then stop. 20mg tabs will work. Will need 22 pills. 3. Likely needs lasix to go home with, and BID dosing is suggested. 4. Wean FiO2 for sats >88% Subjective Date of service: 08/06/19 Interval history: no acute events. Now weaned to nasal cannula. This happened yesterday afternoon so did not get repeat CXR. Objective Vital Signs - 12hr 08/06/19 08/06/19 08/06/19 03:45 07:32 07:56 Temperature 98.3 F Pulse Rate 72 Pulse Rate [ 86 Anterior Bilateral Throughout] Respiratory 20 Rate Respiratory 22 Rate [Anterior Bilateral Throughout] Blood Pressure 114/55 O2 Sat by Pulse 92 94 Oximetry 08/06/19 09:58 Temperature Pulse Rate 78 Pulse Rate [ Anterior Bilateral Throughout] Respiratory Rate Respiratory Rate [Anterior Bilateral Throughout] Blood Pressure 135/80 O2 Sat by Pulse Oximetry CBC and BMP: 08/05/19 05:03 08/05/19 05:03 ABG, PT/INR, D-dimer: ABG ABG pH 7.361 pH Units (7.350-7.450) 08/01/19 00:25 ABG pCO2 75.4 mm Hg 08/01/19 00:25 ABG pO2 71.9 mm Hg (80.0-90.0) L 08/01/19 00:25 ABG O2 Saturation 95.2 % (95.0-99.0) 08/01/19 00:25 Abnormal lab findings: Abnormal Labs 07/30/19 07/30/19 07/30/19 12:30 12:30 12:30 WBC RBC 5.22 H Hgb MCV 79 L MCH 23 L MCHC 30 L RDW 18.8 H [place] % (Auto) 9.8 H Eos % (Auto) 6.6 H Lymph # 1.0 L Eos # 0.5 H ABG pH ABG pO2 ABG HCO3 ABG O2 Saturation ABG Base Excess ABG Hemoglobin Oxyhemoglobin Sodium Potassium Chloride Carbon Dioxide 31 H BUN 8 L Glucose POC Glucose Hemoglobin A1c Magnesium NT-Pro-B Natriuret Pep 4074 H Albumin 3.8 L 07/30/19 07/31/19 07/31/19 19:13 04:37 04:37 WBC RBC 5.16 H Hgb MCV 80 L MCH 23 L MCHC 29 L RDW 18.8 H [place] % (Auto) 12.0 H Eos % (Auto) 7.2 H Lymph # Eos # 0.5 H ABG pH ABG pO2 ABG HCO3 ABG O2 Saturation ABG Base Excess ABG Hemoglobin Oxyhemoglobin Sodium 147 H Potassium Chloride Carbon Dioxide 38 H D BUN Glucose POC Glucose Hemoglobin A1c 7.2 H Magnesium NT-Pro-B Natriuret Pep Albumin 3.8 L 07/31/19 08/01/19 08/01/19 16:50 00:25 07:54 WBC RBC Hgb MCV MCH MCHC RDW [place] % (Auto) Eos % (Auto) Lymph # Eos # ABG pH 7.149 L* ABG pO2 55.1 L 71.9 L ABG HCO3 42.4 H 41.8 H ABG O2 Saturation 81.6 L ABG Base Excess 9.3 H 13.4 H ABG Hemoglobin 12.3 L 11.8 L Oxyhemoglobin 79.4 L 92.6 L Sodium 146 H Potassium Chloride 97.7 L Carbon Dioxide 36 H BUN Glucose POC Glucose Hemoglobin A1c Magnesium NT-Pro-B Natriuret Pep Albumin 08/02/19 08/02/19 08/03/19 03:39 03:39 05:25 WBC 3.4 L RBC 5.53 H Hgb 11.7 L MCV 78 L 78 L MCH 24 L 24 L MCHC 30 L 30 L RDW 18.7 H 18.8 H [place] % (Auto) Eos % (Auto) Lymph # Eos # ABG pH ABG pO2 ABG HCO3 ABG O2 Saturation ABG Base Excess ABG Hemoglobin Oxyhemoglobin Sodium Potassium Chloride 93.1 L Carbon Dioxide 39 H BUN Glucose 71 L POC Glucose Hemoglobin A1c Magnesium NT-Pro-B Natriuret Pep Albumin 08/03/19 08/04/19 08/04/19 05:25 08:09 11:24 WBC RBC Hgb MCV MCH MCHC RDW [place] % (Auto) Eos % (Auto) Lymph # Eos # ABG pH ABG pO2 ABG HCO3 ABG O2 Saturation ABG Base Excess ABG Hemoglobin Oxyhemoglobin Sodium Potassium 5.4 H D Chloride 90.7 L Carbon Dioxide 41 H* BUN Glucose 140 H POC Glucose 139 H 117 H Hemoglobin A1c Magnesium NT-Pro-B Natriuret Pep Albumin 08/05/19 08/05/19 05:03 05:03 WBC RBC 5.79 H Hgb MCV 78 L MCH 23 L MCHC 30 L RDW 19.2 H [place] % (Auto) Eos % (Auto) Lymph # Eos # ABG pH ABG pO2 ABG HCO3 ABG O2 Saturation ABG Base Excess ABG Hemoglobin Oxyhemoglobin Sodium 148 H Potassium Chloride 96.3 L Carbon Dioxide 37 H BUN 39 H Glucose 120 H POC Glucose Hemoglobin A1c Magnesium 2.60 H NT-Pro-B Natriuret Pep Albumin
--- NOTE | 2019-08-06 11:23 | Progress Note ---
Assessment and Plan Paroxysmal Afib/SVT s/p adenosine 6 and 12 mg spontaneously reverted to sinus rhythm overnight on amiodarone and diltiazem Chronic diastolic heart failure patient follows with Dr Yaw Thomson at [facility] Chronic respiratory failure Chronic lower extremity edema Hx of COPD An echo this admission reports normal LVEF 50-55%. An echo done 08/2018 revealed normal LVEF. A dobutamine stress echo performed 08/2018 showed no inducible ischemia. A cardiac PET scan done at [place] in 2016 revealed normal perfusion scan. Continue medical therapy for suppression of paroxysmal atrial fibrillation. Before discharge, patient will benefit from oral anticoagulation for CVA prophylaxis. Subjective Date of service: 08/06/19 Interval history: Patient has no complaints. Stable sinus rhythm on telemetry monitoring. Objective Vital Signs Temp Pulse Pulse Resp Resp BP Pulse Ox 08/06/19 09:58 78 135/80 08/06/19 07:56 86 22 08/06/19 07:32 94 08/06/19 03:45 98.3 F 72 20 114/55 92 08/05/19 22:51 98.1 F 80 22 109/67 91 08/05/19 20:54 90 08/05/19 19:34 86 21 95 08/05/19 19:18 98.5 F 90 22 99/46 93 08/05/19 18:10 98.9 F 80 20 152/83 95 08/05/19 14:14 83 128/80 08/05/19 13:08 96 - Physical Examination General: No Apparent Distress HEENT: Positive: PERRL Neck: Positive: trachea midline Cardiac: Positive: Reg Rate and Rhythm Lungs: Positive: Decreased Breath Sounds Neuro: Positive: Grossly Intact Abdomen: Positive: Active Bowel Sounds Extremities: Absent: edema
[2019-08-06 12:52] VITALS: BP 125/58
[2019-08-06] MEDS ORDERED: APIXABAN 5 MG TAB PO SCH (22:00)
== END 2019-08-06 16:18 | disposition home or self-care (01) | DRG 291 ==
LOC: ED 11:14 → 4A 17:39 → OBSVTOIN 07-31 11:30 → IMCU 07-31 19:50 → 4A 08-03 20:12
PROVIDERS: ADMIT Internal Medicine; ATTEND Internal Medicine
PROC: 4A033R1 Measurement of Arterial Saturation, Peripheral, Percutaneous Approach (ICD-10-PCS; principal; 2019-07-31)
PROC: 5A09357 Assistance with Respiratory Ventilation, Less than 24 Consecutive Hours, Continuous Positive Airway Pressure (ICD-10-PCS; 2019-07-31)
PROC: 5A09357 Assistance with Respiratory Ventilation, Less than 24 Consecutive Hours, Continuous Positive Airway Pressure (ICD-10-PCS; 2019-08-01)
PROC: 5A09357 Assistance with Respiratory Ventilation, Less than 24 Consecutive Hours, Continuous Positive Airway Pressure (ICD-10-PCS; 2019-08-04)
DX: I11.0 Hypertensive heart disease with heart failure (principal); J96.21 Acute and chronic respiratory failure with hypoxia; G93.41 Metabolic encephalopathy; J96.22 Acute and chronic respiratory failure with hypercapnia; R18.8 Other ascites; J81.1 Chronic pulmonary edema; J44.1 Chronic obstructive pulmonary disease with (acute) exacerbation; I48.20 Chronic atrial fibrillation, unspecified; I50.33 Acute on chronic diastolic (congestive) heart failure; I48.0 Paroxysmal atrial fibrillation; I89.0 Lymphedema, not elsewhere classified; I10 Essential (primary) hypertension; E78.5 Hyperlipidemia, unspecified; M19.90 Unspecified osteoarthritis, unspecified site; E87.70 Fluid overload, unspecified; Z88.1 Allergy status to other antibiotic agents; I25.2 Old myocardial infarction; Z99.81 Dependence on supplemental oxygen; Z87.891 Personal history of nicotine dependence; Z79.899 Other long term (current) drug therapy
CPT/HCPCS: 36415; 36600; 71045; 71046; 80048; 80053; 82803; 82962; 83036; 83735; 83880; 84484; 85025; 85027; 93005; 93010; 93306; 94640; 94660; 94760; G0378; A9270-GY; J0153; J0282; J1170; J1200; J1644; J1940; J2060; J2930